=== PATIENT | female | born 1935 | race Caucasian/White ===

== ENCOUNTER 2018-08-07 12:06 | Emergency (ER) | payer MEDICARE ==
[2018-08-07] MEDS ORDERED: DIPH,PERTUS(ACELL)TETVAC-LF 0.5 ML VIAL IM ONE (12:30)
[2018-08-07] MEDS ORDERED: LIDOCAINE 1% INJ 10MG/ML (20 ML MDV) SQ ONE (12:30)
--- NOTE | 2018-08-07 13:25 | CT ---
EXAMINATION TYPE: CT facial bones wo con DATE OF EXAM: 08/07/2018 HISTORY: Fall, face forward onto cement with subsequent facial bone pain CT DLP: 198.2 mGycm. Automated Exposure Control for Dose Reduction was Utilized. TECHNIQUE: CT scan of the head is performed without contrast. COMPARISON: None. FINDINGS: There is a comminuted fracture of the nasal bones with inferior displacement of a small lef t nasal bone fragment 3 mm. There is bowing medially on the right nasal bone fracture without signifi cant displacement. There is bowing of the nasal septum leftward in its midportion. The anterior porti on of the nasal septum has a comminuted fracture on image 58 of axial series 205. The bony orbits appear intact. Scant mucosal thickening is seen in the left maxillary sinus and moder ate mucosal thickening in the anterior ethmoid sinuses with suspected hemorrhage in the left inferior nasal passageway extending into the posterior nasopharynx. The globes and extraocular muscles are sy mmetric. Mild soft tissue swelling is seen over the maxilla and nasal bridge. No additional facial shena ne fracture is seen. IMPRESSION: Comminuted nasal fracture of both the right and left nasal bone and anterior nasal septum with only m inimal displacement of the fracture fragments. Soft tissue swelling is seen over the nasal bridge and maxilla. No maxillary spine nor additional facial bone fracture is seen. Blood and/or secretions pro ducts appear within the left nasal passageway and posterior nasopharynx.
--- NOTE | 2018-08-07 13:27 | XR ---
EXAMINATION TYPE: XR wrist complete RT DATE OF EXAM: 08/07/2018 CLINICAL HISTORY: Left wrist pain after fall. TECHNIQUE: Frontal, lateral and oblique images of the left wrist are obtained. COMPARISON: None FINDINGS: There is a fracture of the distal radius that is intra-articular seen at the dorsal and uln ar aspect of the distal radius. This is superimposed on diffuse osseous demineralization. Faint calci fications are seen within the triangular fibrocartilage. Extensive degenerative change is present of the first carpometacarpal joint. IMPRESSION: There is a distal radial fracture of the dorsal and ulnar aspect with intra-articular ext ension and 3 mm proximal displacement of the most distal fracture fragment. Overlying soft tissue swe lling and diffuse osseous demineralization are seen.
--- NOTE | 2018-08-07 13:29 | CT ---
EXAMINATION TYPE: CT brain eldon foss con DATE OF EXAM: 08/07/2018 COMPARISON: None HISTORY: 83-year-old female with pain after Fall, face forward onto cement CT DLP: 749.4 mGycm Automated exposure control for dose reduction was used. Technique: Examination of the head was done in axial plane without intravenous contrast. Coronal and sagittal reconstructions performed. CT of the cervical spine was obtained in axial plane without intravenous injection of contrast mater ial. Coronal and sagittal reformatted images were obtained from the axial views for evaluation of f ractures, spinal alignment and canal. FINDINGS: Head: There is no evidence of acute intracranial hemorrhage, acute ischemic changes, mass, mass-effect, or extra-axial fluid collection. There is no effacement of cerebral sulci or basal subarachnoid cister ns. There is no hydrocephalus. There is no midline shift. Sommers-white matter distinction is preserv ed. Mild patchy white matter hypodensities both cerebral hemispheres is mild cerebral cortical volume los s. Old lacunar infarct left basal ganglia. Scattered calcifications in the carotid siphons. Mastoid air cells well pneumatized. No calvarial fracture. Facial bones reported separately. Cervical spine: No craniocervical junction anomaly, predental space widening, or prevertebral soft tissue swelling. Trace grade 1 retrolisthesis at C5-C6. Moderate distention plate degenerative change at C5-C6 with disc osteophyte complex mildly narrowing the spinal canal. Mild degenerative disc disease at additional levels. Uncovertebral joint arthropathy mid to lower cervical spine. No acute fracture. There is moderate to severe left foraminal stenosis at C5-C6 and mild at C6/C7. Sagittal and coronal reformatted images confirm above findings. COMBINED IMPRESSION: 1. No acute intracranial abnormality seen. Facial bones reported separately. 2. No acute fracture of the cervical spine. Moderate spondylotic change mid to lower cervical spine w ith degenerative grade 1 retrolisthesis at C5-C6.
--- NOTE | 2018-08-07 13:42 | XR ---
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 Tricompartmental degenerative spurring. Trace knee joint fluid. No sizable effusion. Mild anterior soft tissue swelling. Extensor mechanism is intact. No acut e fracture, subluxation, or dislocation is seen. IMPRESSION: Tricompartmental osteoarthrosis. There is only a trace knee joint effusion. Anterior soft tissue swel ling. No acute osseous abnormality seen.
--- NOTE | 2018-08-07 14:47 | ED ---
General Adult HPI - General Chief complaint: Fall Stated complaint: FALL Time Seen by Provider: 08/07/18 12:17 Source: patient, RN notes reviewed Mode of arrival: wheelchair Limitations: no limitations - History of Present Illness Initial comments: 83-year-old female with a past medical history of atrial flutter, CAD, diabetes, hyperlipidemia presents to emergency department for a chief complaint of fall. Patient states that she was walking on the sidewalk when she tripped and fell. States she hit her face against the sidewalk. States she also hit her hand on the sidewalk. Patient also landed on her right knee. States she is able to do it on the right knee but it is painful. Denies loss of consciousness. Denies blood thinners.Patient has no other complaints at this time including shortness of breath, chest pain, abdominal pain, nausea or vomiting, headache, or visual changes. - Related Data Home Medications Medication Instructions Recorded Confirmed Ascorbic Acid [Vitamin C] 1,000 mg PO BID 08/07/18 08/07/18 Aspirin 325 mg PO DAILY 08/07/18 08/07/18 Cholecalciferol [Vitamin D3] 1,000 unit PO DAILY 08/07/18 08/07/18 Cinnamon Bark [Cinnamon] 500 mg PO BID 08/07/18 08/07/18 Cranberry Fruit Extract [Cranberry] 500 mg PO DAILY 08/07/18 08/07/18 Digoxin [Lanoxin] 125 mcg PO DAILY 08/07/18 08/07/18 Evening [place] Oil 1300mg 1,300 mg PO DAILY 08/07/18 08/07/18 Glimepiride [Amaryl] 1 mg PO [id number] 08/07/18 08/07/18 Levothyroxine Sodium [Synthroid] 100 mcg PO DAILY 08/07/18 08/07/18 Magnesium Gluconate [Magonate] 500 mg PO BID 08/07/18 08/07/18 Metoprolol Tartrate [Lopressor] 50 mg PO BID 08/07/18 08/07/18 Milk Thistle 450 mg PO BID 08/07/18 08/07/18 [place]-3 Fatty Acids [[place]-3] 1,000 mg PO DAILY 08/07/18 08/07/18 Potassium 99 mg PO DAILY 08/07/18 08/07/18 Turmeric Root Extract [Turmeric] 500 mg PO BID 08/07/18 08/07/18 Ubidecarenone [Co Q-10] 200 mg PO DAILY 08/07/18 08/07/18 Vitamin B Complex 1 cap PO BID 08/07/18 08/07/18 Vitamin B-12/Folic Acid 1 tab SL DAILY 08/07/18 08/07/18 1000mcg/400mcg levOCARNitine [l-Carnitine] 500 mg PO BID 08/07/18 08/07/18 metFORMIN HCL [Glucophage] 1,000 mg PO BID 08/07/18 08/07/18 Previous Rx's Medication Instructions Recorded Azithromycin [Zithromax Z-pack] 250 mg PO DIRECTED #6 tab 08/07/18 Allergies Allergy/AdvReac Type Severity Reaction Status Date / Time Penicillins Allergy Unknown Verified 08/07/18 14:24 Detjnmh-Wuc-Env Reductase Allergy Unknown Verified 08/07/18 14:24 Inhibitor Sulfa (Sulfonamide Allergy Unknown Verified 08/07/18 14:24 Antibiotics) Review of Systems ROS Statement: Those systems with pertinent positive or pertinent negative responses have been documented in the HPI. ROS Other: All systems not noted in ROS Statement are negative. Past Medical History Past Medical History: Atrial Fibrillation, Coronary Artery Disease (CAD), Diabetes Mellitus, Hyperlipidemia, Thyroid Disorder History of Any Multi-Drug Resistant Organisms: None Reported Past Surgical History: Coronary Bypass/CABG Past Psychological History: No Psychological Hx Reported Smoking Status: Never smoker Past Alcohol Use History: None Reported Past Drug Use History: None Reported General Exam - General Exam Comments Initial Comments: Patient has edema noted to the right wrist with some limited range of motion however is able to both flex and extend. Radial pulse 2+. Capillary refill less than 2 seconds. Sensation intact. Patient does have some point tenderness noted of the radius Patient has some edema noted of the right knee without laceration or abrasion. Full range of motion of the right knee. Patient is ambulatory. DP pulse 2+ and capillary refill less than 2 seconds. Full range motion of the left upper and lower extremities with no evidence for trauma Limitations: no limitations General appearance: alert, in no apparent distress Head exam: Present: atraumatic, normocephalic, normal inspection Eye exam: Present: normal appearance, PERRL, EOMI. Absent: scleral icterus, conjunctival injection, periorbital swelling, other (Negative raccoon sign) ENT exam: Present: normal oropharynx, mucous membranes moist, TM's normal bilaterally, normal external ear exam (Negative Newberry sign), other (Patient is a 3 cm flap-like laceration over the nasal bridge with edema noted to the nose. No evidence for septal hematoma at this time. No ecchymosis of the nose or eyes. ) Neck exam: Present: normal inspection, full ROM. Absent: tenderness (No Tenderness noted of the cervical spine), meningismus, lymphadenopathy Respiratory exam: Present: normal lung sounds bilaterally. Absent: respiratory distress, wheezes, rales, rhonchi, stridor Cardiovascular Exam: Present: regular rate, normal rhythm, normal heart sounds. Absent: systolic murmur, diastolic murmur, rubs, gallop, clicks Back exam: Absent: vertebral tenderness (No thoracic or lumbar spine tenderness) Neurological exam: Present: alert, oriented X3, CN II-XII intact, other (GCS 15) Psychiatric exam: Present: normal affect, normal mood Course Vital Signs 08/07/18 12:08 Temperature 97.7 F Pulse Rate 80 Respiratory 18 Rate Blood Pressure 136/85 O2 Sat by Pulse 99 Oximetry Procedures - Laceration Laceration #1 Consent Obtained: verbal consent Indication: laceration Site: face Size (cm): 2 Description: flap Depth: simple, single layer Anesthetic Used: lidocaine 1% Anesthesia Technique: local infiltration Amount (mls): 2 Pre-repair: wound explored, irrigated extensively Type of Sutures: nylon Size of Sutures: 5-0 Number of Sutures: 3 Technique: simple, interrupted Patient Tolerated Procedure: well, no complications - Orthopedic Splinting/Casting Injury #1 Side: right Upper Extremity Injury Location: short arm Upper Extremity Immobilizer: volar splint Additional Comments: nv intact after splint applied Medical Decision Making - Medical Decision Making 83-year-old female presents after tripping fall today. No loss of consciousnes s. No blood thinners. No focal neuro deficits. CT brain shows no acute intracranial abnormality. CT C-spine shows no acute fracture. There are moderate spondylitic changes. A CT does show comminuted nasal fracture of both the right and left nasal bone and anterior nasal septum with only minimal displacement of fracture fragments. No additional facial bone fracture is seen. There is edema noted to the nose. No evidence for septal hematoma. She is unclear laceration over the bridge of the nose was sutured using 3 simple or procedures. Patient put on Augmentin. Patient also has distal radial fracture of the dorsal and ulnar aspect with intra-articular extension and 3 mm proximal displacement of the most distal fracture. This was immobilized with a volar wrist splint. X-ray of the right knee shows osteoarthritis with only trace knee joint effusion. Patient ambulatory. Will follow up with orthopedics for both knee pain and wrist pain. Patient's knee will not be immobilized as there is concern for increased risk of falls. Disposition Clinical Impression: Nasal bone fractures, Laceration, Wrist fracture, right Disposition: HOME SELF-CARE Condition: Good Instructions (If sedation given, give patient instructions): Nasal Fracture (ED), Wrist Fracture in Adults (ED) Additional Instructions: Please do not blow your nose. Take antibiotics as directed. Follow-up with primary care for nose fracture and laceration. Have sutures removed in 5 days either here or at primary care. Follow up with orthopedics for the wrist and knee injury. Keep splint in place. Do not get it wet. Return to the emergency department if you have any worsening symptoms. Prescriptions: Azithromycin [Zithromax Z-pack] 250 mg PO DIRECTED #6 tab Is patient prescribed a controlled substance at d/c from ED?: No Referrals: Naomi Westfall MD [Primary Care Provider] - 1-2 days Fermín Rojas DO [Doctor of Osteopathic Medicine] - 1-2 days Time of Disposition: 14:44
[2018-08-07 15:14] VITALS: BP 132/68; PULSE 88; RESP 16; TEMP 97.8
== END 2018-08-07 15:05 | disposition home or self-care (01) ==
LOC: EC 12:06
DX: S02.2XXA Fracture of nasal bones, initial encounter for closed fracture (principal); S52.571A Other intraarticular fracture of lower end of right radius, initial encounter for closed fracture; Z23 Encounter for immunization; M17.11 Unilateral primary osteoarthritis, right knee; S01.81XA Laceration without foreign body of other part of head, initial encounter; I48.91 Unspecified atrial fibrillation; I25.10 Atherosclerotic heart disease of native coronary artery without angina pectoris; E07.9 Disorder of thyroid, unspecified; E11.9 Type 2 diabetes mellitus without complications; Z79.84 Long term (current) use of oral hypoglycemic drugs; Z79.890 Hormone replacement therapy; Z79.899 Other long term (current) drug therapy; Z88.0 Allergy status to penicillin; Z88.2 Allergy status to sulfonamides; Z88.8 Allergy status to other drugs, medicaments and biological substances; Z95.1 Presence of aortocoronary bypass graft; W01.0XXA Fall on same level from slipping, tripping and stumbling without subsequent striking against object, initial encounter; Y93.01 Activity, walking, marching and hiking
CPT/HCPCS: 73110; 73562; 72125; 70486; 70450; 90715; 99284; 29125; 90471; J2001

== ENCOUNTER 2019-04-15 16:19 | Emergency (ER) | payer MEDICARE ==
[2019-04-15 16:24] VITALS: PULSE 85; RESP 18
[2019-04-15] MEDS ORDERED: SODIUM CHLORIDE 0.9% 1,000 ML IV ONE ×2 (16:52)
--- NOTE | 2019-04-15 17:01 | ED ---
Altered Mental Status HPI - General Chief Complaint: Altered Mental Status Stated Complaint: Afib, confused Time Seen by Provider: 04/15/19 16:34 Source: patient, family, RN notes reviewed Mode of arrival: wheelchair Limitations: altered mental status - History of Present Illness Initial Comments: This is a 83-year-old female with no prior history of stroke who presents with family today with complaints of confusion and altered mental status which either started last night or 90 before no prior history of strokes he has a history of bypass surgery. She has a history of left lower extremity blood vessel removal for the same. Decreased oral intake food intake for the last day or 2 no reported fevers chills nausea vomiting sweats. The patient is awake alert oriented 3 very sharp or per family members she today is confused does not know what they are one month or year it is. She was able ably per family no reported deficits to the extremities MD Complaint: altered mental status, confusion - Related Data Home Medications Medication Instructions Recorded Confirmed Ascorbic Acid [Vitamin C] 1,000 mg PO BID 08/07/18 08/07/18 Aspirin 325 mg PO DAILY 08/07/18 08/07/18 Cholecalciferol [Vitamin D3] 1,000 unit PO DAILY 08/07/18 08/07/18 Cinnamon Bark [Cinnamon] 500 mg PO BID 08/07/18 08/07/18 Cranberry Fruit Extract [Cranberry] 500 mg PO DAILY 08/07/18 08/07/18 Digoxin [Lanoxin] 125 mcg PO DAILY 08/07/18 08/07/18 Evening [place] Oil 1300mg 1,300 mg PO DAILY 08/07/18 08/07/18 Glimepiride [Amaryl] 1 mg PO [id number] 08/07/18 08/07/18 Levothyroxine Sodium [Synthroid] 100 mcg PO DAILY 08/07/18 08/07/18 Magnesium Gluconate [Magonate] 500 mg PO BID 08/07/18 08/07/18 Metoprolol Tartrate [Lopressor] 50 mg PO BID 08/07/18 08/07/18 Milk Thistle 450 mg PO BID 08/07/18 08/07/18 [place]-3 Fatty Acids [[place]-3] 1,000 mg PO DAILY 08/07/18 08/07/18 Potassium 99 mg PO DAILY 08/07/18 08/07/18 Turmeric Root Extract [Turmeric] 500 mg PO BID 08/07/18 08/07/18 Ubidecarenone [Co Q-10] 200 mg PO DAILY 08/07/18 08/07/18 Vitamin B Complex 1 cap PO BID 08/07/18 08/07/18 Vitamin B-12/Folic Acid 1 tab SL DAILY 08/07/18 08/07/18 1000mcg/400mcg levOCARNitine [l-Carnitine] 500 mg PO BID 08/07/18 08/07/18 metFORMIN HCL [Glucophage] 1,000 mg PO BID 08/07/18 08/07/18 Previous Rx's Medication Instructions Recorded Azithromycin [Zithromax Z-pack] 250 mg PO DIRECTED #6 tab 08/07/18 Allergies Allergy/AdvReac Type Severity Reaction Status Date / Time Penicillins Allergy Unknown Verified 04/15/19 16:24 Jhhjfuw-Eso-Afr Reductase Allergy Unknown Verified 04/15/19 16:24 Inhibitor Sulfa (Sulfonamide Allergy Unknown Verified 04/15/19 16:24 Antibiotics) Review of Systems ROS Statement: Those systems with pertinent positive or pertinent negative responses have been documented in the HPI. ROS Other: All systems not noted in ROS Statement are negative. Past Medical History Past Medical History: Atrial Fibrillation, Coronary Artery Disease (CAD), Diabetes Mellitus, Hyperlipidemia, Thyroid Disorder History of Any Multi-Drug Resistant Organisms: None Reported Past Surgical History: Coronary Bypass/CABG Past Psychological History: No Psychological Hx Reported Smoking Status: Never smoker Past Alcohol Use History: None Reported Past Drug Use History: None Reported General Exam - General Exam Comments Initial Comments: This is a well-developed well-nourished awake alert but confused female Limitations: altered mental status General appearance: alert, in no apparent distress Head exam: Present: atraumatic, normocephalic, normal inspection Eye exam: Present: normal appearance, PERRL, EOMI. Absent: scleral icterus, conjunctival injection, periorbital swelling ENT exam: Present: normal exam, mucous membranes moist Neck exam: Present: normal inspection, full ROM, other (No stridor JVD or bruits). Absent: tenderness, meningismus, lymphadenopathy Respiratory exam: Present: normal lung sounds bilaterally. Absent: respiratory distress, wheezes, rales, rhonchi, stridor Cardiovascular Exam: Present: irregular rhythm. Absent: systolic murmur, diastolic murmur, rubs, gallop, clicks GI/Abdominal exam: Present: soft, normal bowel sounds. Absent: distended, tenderness, guarding, rebound, rigid Extremities exam: Present: normal inspection, full ROM, normal capillary refill. Absent: tenderness, pedal edema, joint swelling, calf tenderness Back exam: Present: normal inspection Neurological exam: Present: alert, altered, CN II-XII intact. Absent: motor sensory deficit Psychiatric exam: Present: normal affect, normal mood Skin exam: Present: warm, dry, intact, normal color. Absent: rash Course Vital Signs 04/15/19 16:20 Temperature 98.7 F Pulse Rate 85 Respiratory 18 Rate Blood Pressure 91/57 O2 Sat by Pulse 97 Oximetry - Reevaluation(s) Reevaluation #1: 04/15/19 18:50 Evaluation patient reveals no change in her status. I did discuss the initial findings with family members patient has not had any change she is not any blood thinners at this time she has chronic atrial fibrillation. Medical Decision Making - Medical Decision Making Patient remains unchanged in her status. I did discuss the findings with the patient and her family. I did discuss the case with Dr. Zuñiga from interventional neurology did request the patient be transferred to [facility]. I did later then discussed the case with Dr. Bose who is agreed to set the patient is a year to ER transfer. - Lab Data Result diagrams: 04/15/19 16:55 04/15/19 16:55 Lab Results 04/15/19 04/15/19 04/15/19 Range/Units 16:55 16:55 16:55 WBC 9.8 (3.8-10.6) k/uL RBC 4.64 (3.80-5.40) m/uL Hgb 14.0 (11.4-16.0) gm/dL Hct 42.5 (34.0-46.0) % MCV 91.6 (80.0-100.0) fL MCH 30.2 (25.0-35.0) pg MCHC 33.0 (31.0-37.0) g/dL RDW 12.9 (11.5-15.5) % Plt Count 251 (150-450) k/uL Neutrophils % 60 % Lymphocytes % 29 % Monocytes % 7 % Eosinophils % 2 % Basophils % 1 % Neutrophils # 5.9 (1.3-7.7) k/uL Lymphocytes # 2.8 (1.0-4.8) k/uL Monocytes # 0.7 (0-1.0) k/uL Eosinophils # 0.2 (0-0.7) k/uL Basophils # 0.1 (0-0.2) k/uL PT (9.0-12.0) sec INR (<1.2) APTT (22.0-30.0) sec Sodium 135 L (137-145) mmol/L Potassium 4.3 (3.5-5.1) mmol/L Chloride 100 (98-107) mmol/L Carbon Dioxide 24 (22-30) mmol/L Anion Gap 11 mmol/L BUN 16 (7-17) mg/dL Creatinine 0.67 (0.52-1.04) mg/dL Est GFR (CKD-EPI)AfAm >90 (>60 ml/min/1.73 sqM) Est GFR (CKD-EPI)NonAf 83 (>60 ml/min/1.73 sqM) Glucose 147 H (74-99) mg/dL POC Glucose (mg/dL) (75-99) mg/dL POC Glu Can Filling And Closing Machine Tender ID Calcium 9.7 (8.4-10.2) mg/dL Magnesium 1.8 (1.6-2.3) mg/dL Total Bilirubin 0.7 (0.2-1.3) mg/dL AST 29 (14-36) U/L ALT 17 (4-34) U/L Alkaline Phosphatase 40 (38-126) U/L Ammonia (<30) umol/L Creatine Kinase 124 (30-135) U/L Troponin I (0.000-0.034) ng/mL Total Protein 6.9 (6.3-8.2) g/dL Albumin 4.3 (3.5-5.0) g/dL Urine Color Yellow Urine Appearance Clear (Clear) Urine pH 5.0 (5.0-8.0) Ur Specific [place] 1.020 (1.001-1.035) Urine Protein Negative (Negative) Urine Glucose (UA) Negative (Negative) Urine Ketones Trace H (Negative) Urine Blood Negative (Negative) Urine Nitrite Negative (Negative) Urine Bilirubin Negative (Negative) Urine Urobilinogen <2.0 (<2.0) mg/dL Ur Leukocyte Esterase Moderate H (Negative) Urine RBC 1 (0-5) /hpf Urine WBC 28 H (0-5) /hpf Ur Squamous Epith Cells 1 (0-4) /hpf Urine Mucus Occasional H (None) /hpf Urine Opiates Screen Not Detected (NotDetected) Ur Oxycodone Screen Not Detected (NotDetected) Urine Methadone Screen Not Detected (NotDetected) Ur Propoxyphene Screen Not Detected (NotDetected) Ur Barbiturates Screen Not Detected (NotDetected) U Tricyclic Antidepress Not Detected (NotDetected) Ur Phencyclidine Scrn Not Detected (NotDetected) Ur Amphetamines Screen Not Detected (NotDetected) U Methamphetamines Scrn Not Detected (NotDetected) U Benzodiazepines Scrn Not Detected (NotDetected) Urine Cocaine Screen Not Detected (NotDetected) U Marijuana (THC) Screen Not Detected (NotDetected) 04/15/19 04/15/19 04/15/19 Range/Units 16:55 16:55 16:55 WBC (3.8-10.6) k/uL RBC (3.80-5.40) m/uL Hgb (11.4-16.0) gm/dL Hct (34.0-46.0) % MCV (80.0-100.0) fL MCH (25.0-35.0) pg MCHC (31.0-37.0) g/dL RDW (11.5-15.5) % Plt Count (150-450) k/uL Neutrophils % % Lymphocytes % % Monocytes % % Eosinophils % % Basophils % % Neutrophils # (1.3-7.7) k/uL Lymphocytes # (1.0-4.8) k/uL Monocytes # (0-1.0) k/uL Eosinophils # (0-0.7) k/uL Basophils # (0-0.2) k/uL PT 10.8 (9.0-12.0) sec INR 1.0 (<1.2) APTT 24.4 (22.0-30.0) sec Sodium (137-145) mmol/L Potassium (3.5-5.1) mmol/L Chloride (98-107) mmol/L Carbon Dioxide (22-30) mmol/L Anion Gap mmol/L BUN (7-17) mg/dL Creatinine (0.52-1.04) mg/dL Est GFR (CKD-EPI)AfAm (>60 ml/min/1.73 sqM) Est GFR (CKD-EPI)NonAf (>60 ml/min/1.73 sqM) Glucose (74-99) mg/dL POC Glucose (mg/dL) (75-99) mg/dL POC Glu Can Filling And Closing Machine Tender ID Calcium (8.4-10.2) mg/dL Magnesium (1.6-2.3) mg/dL Total Bilirubin (0.2-1.3) mg/dL AST (14-36) U/L ALT (4-34) U/L Alkaline Phosphatase (38-126) U/L Ammonia <9 (<30) umol/L Creatine Kinase (30-135) U/L Troponin I <0.012 (0.000-0.034) ng/mL Total Protein (6.3-8.2) g/dL Albumin (3.5-5.0) g/dL Urine Color Urine Appearance (Clear) Urine pH (5.0-8.0) Ur Specific [place] (1.001-1.035) Urine Protein (Negative) Urine Glucose (UA) (Negative) Urine Ketones (Negative) Urine Blood (Negative) Urine Nitrite (Negative) Urine Bilirubin (Negative) Urine Urobilinogen (<2.0) mg/dL Ur Leukocyte Esterase (Negative) Urine RBC (0-5) /hpf Urine WBC (0-5) /hpf Ur Squamous Epith Cells (0-4) /hpf Urine Mucus (None) /hpf Urine Opiates Screen (NotDetected) Ur Oxycodone Screen (NotDetected) Urine Methadone Screen (NotDetected) Ur Propoxyphene Screen (NotDetected) Ur Barbiturates Screen (NotDetected) U Tricyclic Antidepress (NotDetected) Ur Phencyclidine Scrn (NotDetected) Ur Amphetamines Screen (NotDetected) U Methamphetamines Scrn (NotDetected) U Benzodiazepines Scrn (NotDetected) Urine Cocaine Screen (NotDetected) U Marijuana (THC) Screen (NotDetected) 04/15/19 Range/Units 17:26 WBC (3.8-10.6) k/uL RBC (3.80-5.40) m/uL Hgb (11.4-16.0) gm/dL Hct (34.0-46.0) % MCV (80.0-100.0) fL MCH (25.0-35.0) pg MCHC (31.0-37.0) g/dL RDW (11.5-15.5) % Plt Count (150-450) k/uL Neutrophils % % Lymphocytes % % Monocytes % % Eosinophils % % Basophils % % Neutrophils # (1.3-7.7) k/uL Lymphocytes # (1.0-4.8) k/uL Monocytes # (0-1.0) k/uL Eosinophils # (0-0.7) k/uL Basophils # (0-0.2) k/uL PT (9.0-12.0) sec INR (<1.2) APTT (22.0-30.0) sec Sodium (137-145) mmol/L Potassium (3.5-5.1) mmol/L Chloride (98-107) mmol/L Carbon Dioxide (22-30) mmol/L Anion Gap mmol/L BUN (7-17) mg/dL Creatinine (0.52-1.04) mg/dL Est GFR (CKD-EPI)AfAm (>60 ml/min/1.73 sqM) Est GFR (CKD-EPI)NonAf (>60 ml/min/1.73 sqM) Glucose (74-99) mg/dL POC Glucose (mg/dL) 129 H (75-99) mg/dL POC Glu Can Filling And Closing Machine Tender ID Zahira Lora Calcium (8.4-10.2) mg/dL Magnesium (1.6-2.3) mg/dL Total Bilirubin (0.2-1.3) mg/dL AST (14-36) U/L ALT (4-34) U/L Alkaline Phosphatase (38-126) U/L Ammonia (<30) umol/L Creatine Kinase (30-135) U/L Troponin I (0.000-0.034) ng/mL Total Protein (6.3-8.2) g/dL Albumin (3.5-5.0) g/dL Urine Color Urine Appearance (Clear) Urine pH (5.0-8.0) Ur Specific [place] (1.001-1.035) Urine Protein (Negative) Urine Glucose (UA) (Negative) Urine Ketones (Negative) Urine Blood (Negative) Urine Nitrite (Negative) Urine Bilirubin (Negative) Urine Urobilinogen (<2.0) mg/dL Ur Leukocyte Esterase (Negative) Urine RBC (0-5) /hpf Urine WBC (0-5) /hpf Ur Squamous Epith Cells (0-4) /hpf Urine Mucus (None) /hpf Urine Opiates Screen (NotDetected) Ur Oxycodone Screen (NotDetected) Urine Methadone Screen (NotDetected) Ur Propoxyphene Screen (NotDetected) Ur Barbiturates Screen (NotDetected) U Tricyclic Antidepress (NotDetected) Ur Phencyclidine Scrn (NotDetected) Ur Amphetamines Screen (NotDetected) U Methamphetamines Scrn (NotDetected) U Benzodiazepines Scrn (NotDetected) Urine Cocaine Screen (NotDetected) U Marijuana (THC) Screen (NotDetected) - EKG Data -: EKG Interpreted by Me (Atrial fibrillation rate of 93 QRS duration 86 daily since QTC 350/435 nons) EKG Comments: Atrial fibrillation rate of 93 QRS 86 QT since QTC 350/[address]-T wave configuration - Radiology Data Radiology results: report reviewed (I did review the imaging and report evidence of a hemorrhagic ischemic infarct on the left temporal lobe I did discuss this with Dr. Billy.), image reviewed Critical Care Time Critical Care Time: Yes Critical Care Time: 35 minutes of critical care time which includes initial presentation with history physical labs x-rays multiple reevaluation the patient discussed with patient family regarding the findings discussion with the interventional neurologist as well as with the receiving facility also discussion with the paramedics transferring the patient. This also did include re-reviewing old charting that was available. This also included reviewing the patient's medications were present in by family. This also included documentation of the above Disposition Clinical Impression: Intracranial hemorrhage, CVA (cerebral vascular accident), Altered mental status, Chronic atrial fibrillation Disposition: OTHER INSTITUTION NOT DEFINED Condition: Serious Referrals: Naomi Westfall MD [Primary Care Provider] - 1-2 days - Out of Hospital Transfer - Req. Specs Out of Hospital Transfer - Requested Specifics: Other Emergency Center
[2019-04-15 17:24] LABS: Basophils # (A) 0.1 k/uL (0-0.2); Basophils % (A) 1 %; Eosinophils # (A) 0.2 k/uL (0-0.7); Eosinophils % (A) 2 %; HCT 42.5 % (34.0-46.0); Lymphocytes # (A) 2.8 k/uL (1.0-4.8); Lymphocytes % (A) 29 %; MCH 30.2 pg (25.0-35.0); MCV 91.6 fL (80.0-100.0); Mean Platelet Volume 7.6; Monocytes # (A) 0.7 k/uL (0-1.0); Monocytes % (A) 7 %; Neutrophils # (A) 5.9 k/uL (1.3-7.7); Neutrophils % (A) 60 %; Platelet Count 251 k/uL (150-450); RBC 4.64 m/uL (3.80-5.40); RDW 12.9 % (11.5-15.5); WBC 9.8 k/uL (3.8-10.6)
[2019-04-15 17:27] LABS: Appearance,Urine Clear (Clear); Bilirubin,Urine Negative (Negative); Blood,Urine Negative (Negative); Color,Urine Yellow; Glucose,Urine (UA) Negative (Negative); Ketones,Urine Trace (Negative); Leukocyte Esterase,Urine Moderate (Negative); Mucus,Urine Occasional /hpf; Nitrite,Urine Negative (Negative); Protein,Urine Negative (Negative); RBC,Urine 1 /hpf (0-5); Squamous Epithelial Cell,Urine 1 /hpf (0-4); Urobilinogen,Urine <2.0 mg/dL (<2.0); WBC,Urine 28 /hpf (0-5)
[2019-04-15 17:27] LABS: Glucose,Whole Blood 129 mg/dL (75-99)
[2019-04-15 17:33] LABS: ALT 17 U/L (4-34); AST 29 U/L (14-36); African American GFR (CKD) >90 (>60 ml/min/1.73 sqM); Albumin 4.3 g/dL (3.5-5.0); Alkaline Phosphatase 40 U/L (38-126); Amphetamine Screen,Urine Not Detected (NotDetected); Anion Gap 11 mmol/L; Barbiturate Screen,Urine Not Detected (NotDetected); Benzodiazepines Screen,Urine Not Detected (NotDetected); Blood Urea Nitrogen 16 mg/dL (7-17); Calcium 9.7 mg/dL (8.4-10.2); Carbon Dioxide 24 mmol/L (22-30); Chloride 100 mmol/L (98-107); Cocaine Screen,Urine Not Detected (NotDetected); Creatine Kinase 124 U/L (30-135); Glucose 147 mg/dL (74-99); Magnesium 1.8 mg/dL (1.6-2.3); Methadone Screen, Urine Not Detected (NotDetected); Non-African American GFR(CKD) 83 (>60 ml/min/1.73 sqM); Opiate Screen,Urine Not Detected (NotDetected); Oxycodone Screen, Urine Not Detected (NotDetected); Partial Thromboplastin Time 24.4 sec (22.0-30.0); Phencyclidine Screen,Urine Not Detected (NotDetected); Potassium 4.3 mmol/L (3.5-5.1); Prothrombin Time 10.8 sec (9.0-12.0); Sodium 135 mmol/L (137-145); Total Bilirubin 0.7 mg/dL (0.2-1.3); Total Protein 6.9 g/dL (6.3-8.2); Tricyclic Antidepressant,Urine Not Detected (NotDetected); Urn Cannabinoid Scrn Not Detected (NotDetected)
--- NOTE | 2019-04-15 18:20 | CT ---
EXAMINATION TYPE: CT brain wo con DATE OF EXAM: 04/15/2019 COMPARISON: 08/07/2018 HISTORY: Confusion CT DLP: 1094.4 mGycm Automated exposure control for dose reduction was used. Multiple axial sections were obtained of the brain without contrast. There is a 3.5 cm area of high attenuation in the left posterior temporal lobe with some mild surroun ding edema. This is consistent with an acute hemorrhage in the brain parenchyma. There is no signific ant mass effect. There is no midline shift. Calvarium is intact. Area of edema around the hemorrhage measures 6 x 4.5 cm. There is mild cerebral cortical atrophy. IMPRESSION: Acute hemorrhage left temporal lobe consistent with acute hemorrhagic infarct. This exam was discusse d with Dr. Saenz at 6:30 PM.
--- NOTE | 2019-04-15 18:27 | XR ---
EXAMINATION TYPE: XR chest 2V DATE OF EXAM: 04/15/2019 COMPARISON: NONE HISTORY: Altered mental status TECHNIQUE: 2 views FINDINGS: There is no heart failure nor confluent pneumonic infiltrate. There are sternal wires. Cost ophrenic angles are clear. Bony thorax is intact. There are chest leads. IMPRESSION: No active cardiopulmonary disease.
[2019-04-15 19:17] VITALS: BP 114/68
[2019-04-15 19:25] VITALS: TEMP 97.9
== END 2019-04-15 19:21 | disposition other institution (70) ==
LOC: EC 16:19
DX: I62.9 Nontraumatic intracranial hemorrhage, unspecified (principal); I48.20 Chronic atrial fibrillation, unspecified; I63.9 Cerebral infarction, unspecified; I25.10 Atherosclerotic heart disease of native coronary artery without angina pectoris; E11.9 Type 2 diabetes mellitus without complications; E07.9 Disorder of thyroid, unspecified; Z79.890 Hormone replacement therapy; Z79.82 Long term (current) use of aspirin; Z79.899 Other long term (current) drug therapy; Z79.84 Long term (current) use of oral hypoglycemic drugs; Z88.0 Allergy status to penicillin; Z88.2 Allergy status to sulfonamides; Z88.8 Allergy status to other drugs, medicaments and biological substances; Z95.1 Presence of aortocoronary bypass graft
CPT/HCPCS: 36415; 70450; 71046; 80053; 80306; 81001; 82140; 82550; 83735; 84484; 85025; 85610; 85730; 87077; 87086; 87186; 93005; 96360; 96361; 99291

== ENCOUNTER → 2020-07-21 | Outpatient (CLI) | payer MEDICARE ==
[2020-07-21 22:09] LABS: African American GFR (CKD) 79.6 (60.0-200.0); Albumin 4.6 g/dL (3.80-4.90); Albumin/Globulin Ratio 2.09 (1.60-3.17); Anion Gap 8.8 mmol/L (4.00-12.00); BUN/Creat Ratio 21.25 Ratio (12.00-20.00); Calcium 9.7 mg/dL (8.7-10.3); Carbon Dioxide 27.2 mmol/L (21.6-31.8); Globulin 2.2 g/dL (1.6-3.3); Non-African American GFR(CKD) 68.7 (60.0-200.0); Potassium 4.4 mmol/L (3.5-5.5); Total Bilirubin 0.4 mg/dL (0.3-1.2); Total Protein 6.8 g/dL (6.2-8.2)
[2020-07-22 06:25] LABS: Urine Creatinine 122.5 mg/dL
== END | disposition home or self-care (01) ==
LOC: LABWHC1 13:18
PROVIDERS: ATTEND Internal Medicine Endocrinology, Diabetes & Metabolism
DX: E11.65 Type 2 diabetes mellitus with hyperglycemia (principal)
CPT/HCPCS: 36415; 80053; 82043; 82570; 83036; 84443

== ENCOUNTER → 2021-03-27 | Outpatient (CLI) | payer MEDICARE ==
[2021-03-28 06:15] LABS: ALT 21 U/L (8-44); AST 28 U/L (13-35); Albumin 4.5 g/dL (3.8-4.9); Albumin/Globulin Ratio 1.88 (1.60-3.17); Alkaline Phosphatase 36 U/L (41-126); BUN/Creat Ratio 23.63 Ratio (12.00-20.00); Blood Urea Nitrogen 18.9 mg/dL (9.0-27.0); Calcium 9.7 mg/dL (8.7-10.3); Carbon Dioxide 20.1 mmol/L (20.0-27.5); Chloride 102 mmol/L (96-109); Chol/HDL Ratio 6.82 Ratio; Globulin 2.4 g/dL (1.6-3.3); Glucose 127 mg/dL (70-110); LDL Cholesterol,Calculated 117.2 mg/dL (0.0-131.0); Non-African American GFR(CKD) 68.2 (60.0-200.0); Potassium 4.5 mmol/L (3.5-5.5); Sodium 143 mmol/L (135-145); Total Protein 6.9 g/dL (6.2-8.2)
== END | disposition home or self-care (01) ==
LOC: LABWHC1 11:16
PROVIDERS: ATTEND Internal Medicine Endocrinology, Diabetes & Metabolism
DX: E11.65 Type 2 diabetes mellitus with hyperglycemia (principal)
CPT/HCPCS: 36415; 80053; 80061; 82043; 82570; 83036; 84443

== ENCOUNTER → 2022-03-06 | Outpatient (CLI) | payer MEDICARE ==
[2022-03-06 14:59] LABS: African American GFR (CKD) 90.3 (60.0-200.0); Albumin 4.5 g/dL (3.8-4.9); BUN/Creat Ratio 21.21 Ratio (12.00-20.00); Blood Urea Nitrogen 15.1 mg/dL (9.0-27.0); Calcium 9.6 mg/dL (8.7-10.3); Carbon Dioxide 28.7 mmol/L (20.0-27.5); Globulin 2.3 g/dL (1.6-3.3); HDL Cholesterol 36.7 mg/dL (40.00-60.00); Non-African American GFR(CKD) 77.9 (60.0-200.0); Potassium 4.8 mmol/L (3.5-5.5); Total Bilirubin 0.4 mg/dL (0.30-1.20); Total Protein 6.8 g/dL (6.2-8.2)
[2022-03-06 15:26] LABS: Chol/HDL Ratio 7.6 Ratio; LDL Cholesterol,Direct Reflex 96.3 mg/dL (0.00-129.00)
== END | disposition home or self-care (01) ==
LOC: LABWHC1 09:34
PROVIDERS: ATTEND Internal Medicine Endocrinology, Diabetes & Metabolism
DX: E11.65 Type 2 diabetes mellitus with hyperglycemia (principal)
CPT/HCPCS: 36415; 80053; 80061; 82043; 82570; 83036; 83721; 84443

== ENCOUNTER → 2022-09-04 | Outpatient (CLI) | payer MEDICARE ==
[2022-09-04 15:35] LABS: ALT 12 U/L (8-44); AST 16 U/L (13-35); African American GFR (CKD) 93.5 (60.0-200.0); Albumin 4.3 g/dL (3.8-4.9); Albumin/Globulin Ratio 1.93 (1.60-3.17); Alkaline Phosphatase 42 U/L (41-126); BUN/Creat Ratio 19.18 Ratio (12.00-20.00); Blood Urea Nitrogen 12.6 mg/dL (9.0-27.0); Calcium 9.7 mg/dL (8.7-10.3); Carbon Dioxide 27.8 mmol/L (20.0-27.5); Chloride 100 mmol/L (96-109); Chol/HDL Ratio 6.36 Ratio; Globulin 2.2 g/dL (1.6-3.3); Glucose 138 mg/dL (70-110); LDL Cholesterol,Calculated 102.4 mg/dL (0.0-131.0); Non-African American GFR(CKD) 80.7 (60.0-200.0); Potassium 4.6 mmol/L (3.5-5.5); Sodium 140 mmol/L (135-145); Total Protein 6.5 g/dL (6.2-8.2)
[2022-09-04 20:16] LABS: Microalbumin Creatinine Ratio <30 mg/g Creat (0-30); Urine Creatinine 85.3 mg/dL (28.0-217.0)
== END | disposition home or self-care (01) ==
LOC: LABWHC1 10:41
PROVIDERS: ATTEND Internal Medicine Endocrinology, Diabetes & Metabolism
DX: E11.65 Type 2 diabetes mellitus with hyperglycemia (principal)
CPT/HCPCS: 36415; 80053; 80061; 82043; 82570; 83036; 84443

== ENCOUNTER → 2023-03-09 | Outpatient (CLI) | payer MEDICARE ==
[2023-03-09 23:23] LABS: BUN/Creat Ratio 26.83 Ratio (12.00-20.00); Blood Urea Nitrogen 16.1 mg/dL (9.0-27.0); Chloride 101 mmol/L (96-109); Chol/HDL Ratio 6.64 Ratio; Glucose 137 mg/dL (70-110); LDL Cholesterol,Calculated 119.4 mg/dL (0.0-131.0); Potassium 4.4 mmol/L (3.5-5.5); Sodium 139 mmol/L (135-145)
[2023-03-09 23:24] LABS: ALT 10 U/L (8-44); AST 12 U/L (13-35); Albumin 4.3 g/dL (3.8-4.9); Albumin/Globulin Ratio 2.05 Ratio (1.60-3.17); Alkaline Phosphatase 44 U/L (41-126); Calcium 9.4 mg/dL (8.7-10.3); Globulin 2.1 g/dL (1.6-3.3); Total Bilirubin 0.3 mg/dL (0.3-1.2); Total Protein 6.4 g/dL (6.2-8.2)
[2023-03-09 23:42] LABS: Microalbumin Creatinine Ratio <9 mg/g Cr (0-30)
== END | disposition home or self-care (01) ==
LOC: LABWHC1 10:22
PROVIDERS: ATTEND Internal Medicine Endocrinology, Diabetes & Metabolism
DX: E11.65 Type 2 diabetes mellitus with hyperglycemia (principal)
CPT/HCPCS: 36415; 80053; 80061; 82043; 82570; 83036; 84443

== ENCOUNTER 2023-06-13 21:22 | Inpatient (IN) | payer MEDICARE ==
--- NOTE | 2023-06-13 21:37 | ED ---
General Adult HPI - General Stated complaint: fever Time Seen by Provider: 06/13/23 21:23 - History of Present Illness Initial comments: Dictation was produced using [employer] dictation software. please excuse any grammatical, word or spelling errors. Chief Complaint: 87-year-old female presents to the emergency department for shaking chills and tremors History of Present Illness: Patient is 87-year-old female she presents emergency department via EMS. Patient has been experiencing acute onset shaking chills tremors. Family notices symptoms. They were going to bring patient to the emergency department however she became so weak and was too weak to get into the car. She slumped down and it was difficult for family to bring the patient here EMS was called EMS states that patient was febrile with a temperature of 101. She had a borderline low oxygenation on room air. 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 Patient denies any complaints. According to EMS who received report from family there was no concern about her mentation Unable to obtain ROS secondary to mental status - Related Data Home Medications Medication Instructions Recorded Confirmed Ascorbic Acid [Vitamin C] 1,000 mg PO BID 08/07/18 08/07/18 Aspirin 325 mg PO DAILY 08/07/18 08/07/18 Cholecalciferol [Vitamin D3] 1,000 unit PO DAILY 08/07/18 08/07/18 Cinnamon Bark [Cinnamon] 500 mg PO BID 08/07/18 08/07/18 Cranberry Fruit Extract [Cranberry] 500 mg PO DAILY 08/07/18 08/07/18 Digoxin [Lanoxin] 125 mcg PO DAILY 08/07/18 08/07/18 Evening [place] Oil 1300mg 1,300 mg PO DAILY 08/07/18 08/07/18 Glimepiride [Amaryl] 1 mg PO AC-BRKFST 08/07/18 08/07/18 Levothyroxine Sodium [Synthroid] 100 mcg PO DAILY 08/07/18 08/07/18 Magnesium Gluconate [Magonate] 500 mg PO BID 08/07/18 08/07/18 Metoprolol Tartrate [Lopressor] 50 mg PO BID 08/07/18 08/07/18 Milk Thistle 450 mg PO BID 08/07/18 08/07/18 [place]-3 Fatty Acids [[place]-3] 1,000 mg PO DAILY 08/07/18 08/07/18 Potassium 99 mg PO DAILY 08/07/18 08/07/18 Turmeric Root Extract [Turmeric] 500 mg PO BID 08/07/18 08/07/18 Ubidecarenone [Co Q-10] 200 mg PO DAILY 08/07/18 08/07/18 Vitamin B Complex 1 cap PO BID 08/07/18 08/07/18 Vitamin B-12/Folic Acid 1 tab SL DAILY 08/07/18 08/07/18 1000mcg/400mcg levOCARNitine [l-Carnitine] 500 mg PO BID 08/07/18 08/07/18 metFORMIN HCL [Glucophage] 1,000 mg PO BID 08/07/18 08/07/18 Previous Rx's Medication Instructions Recorded Azithromycin [Zithromax Z-pack (6 250 mg PO DIRECTED #6 tab 08/07/18 tabs)] Allergies Allergy/AdvReac Type Severity Reaction Status Date / Time Penicillins Allergy Unknown Verified 04/15/19 16:24 Dusisod-PZK-JlY Reductase Allergy Unknown Verified 04/15/19 16:24 Inhibitor [Rzeypcv-Gsz-Tff Reductase Inhibitor] Sulfa (Sulfonamide Allergy Unknown Verified 04/15/19 16:24 Antibiotics) Review of Systems ROS Statement: Those systems with pertinent positive or pertinent negative responses have been documented in the HPI. ROS Other: All systems not noted in ROS Statement are negative. Past Medical History Past Medical History: Atrial Fibrillation, Coronary Artery Disease (CAD), Diabetes Mellitus, Hyperlipidemia, Thyroid Disorder History of Any Multi-Drug Resistant Organisms: None Reported Past Surgical History: Coronary Bypass/CABG Past Psychological History: No Psychological Hx Reported Past Alcohol Use History: None Reported Past Drug Use History: None Reported General Exam - General Exam Comments Initial Comments: PHYSICAL EXAM: General Impression: Alert and oriented x2/4, not in acute distress HEENT: Normocephalic atraumatic, extra-ocular movements intact, pupils equal and reactive to light bilaterally, mucous membranes moist. Cardiovascular: Heart regular rate and rhythm Chest: Able to complete full sentences, no retractions, no tachypnea Abdomen: abdomen soft, diffuse palpatory tenderness to the abdomen, non- distended, no organomegaly Musculoskeletal: Pulses present and equal in all extremities, no peripheral edema Motor: no focal deficits noted Neurological: CN II-XII grossly intact, no focal motor or sensory deficits noted Skin: Intact with no visualized rashes Psych: Normal affect and mood Course Vital Signs 06/13/23 06/13/23 06/14/23 21:42 23:13 01:09 Temperature 101.2 F H 100.6 F H Pulse Rate 77 80 80 Respiratory 22 20 16 Rate Blood Pressure 110/71 121/72 124/55 O2 Sat by Pulse 91 L 92 L 92 L Oximetry 06/14/23 06/14/23 06/14/23 01:57 02:00 03:36 Temperature 100.7 F H Pulse Rate 79 78 74 Respiratory 18 20 15 Rate Blood Pressure 117/48 117/48 129/50 O2 Sat by Pulse 92 L 92 L 94 L Oximetry EKG Findings - EKG Comments: EKG Findings:: My EKG interpretation: Ventricular rate 80, sinus rhythm, TN interval 203, cures 122, QTc 411. No TN prolongation, no QTC prolongation, no ST or T-wave changes noted. EKG compared to April 15, 2019 showing no changes. Overall, this EKG is unremarkable Medical Decision Making - Medical Decision Making Was pt. sent in by a medical professional or institution (, PA, [employer], urgent care, hospital, or [facility]...) When possible be specific @ -No Did you speak to anyone other than the patient for history (EMS, parent, family, police, friend...)? What history was obtained from this source @ -Some history obtained from family number at the bedside states that patient was very shaky today Did you review nursing and triage notes (agree or disagree)? Why? @ -I reviewed and agree with nursing and triage notes Were old charts reviewed (outside hosp., previous admission, EMS record, old EKG, old radiological studies, urgent care reports/EKG's, [facility] records)? Report findings @ -No old charts were reviewed Differential Diagnosis (chest pain, altered mental status, abdominal pain women, abdominal pain men, vaginal bleeding, musculoskeletal, weakness, fever, dyspnea, syncope, headache, dizziness, GI bleed, back pain, seizure, CVA, palpatations, mental health)? @ -Differential Weakness: Hypoglycemia, shock, sepsis, hyponatremia, anemia, infection, [place], ETOH, adverse medicine reaction, overdose, stroke, this is not meant to be an all-inclusive list. EKG interpreted by me (3pts min.). @ -See above X-rays interpreted by me (1pt min.). @ -Chest x-ray is nonacute CT interpreted by me (1pt min.). @ -CT of the abdomen pelvis shows no acute processes U/S interpreted by me (1pt. min.). @ -None done What testing was considered but not performed or refused? (CT, X-rays, U/S, labs)? Why? @ -None What meds were considered but not given or refused? Why? @ -None Did you discuss the management of the patient with other professionals (professionals i.e. , PA, [employer], lab, RT, psych nurse, child welfare social worker, orthoptist, teacher, hospital admissions officer, shelter case manager)? Give summary @ -Case discussed with hospitalist for admission Was smoking cessation discussed for >3mins.? @ -No Was critical care preformed (if so, how long)? @ -No Were there social determinants of health that impacted care today? How? (Homeles sness, low income, unemployed, alcoholism, drug addiction, transportation, low edu. Level, literacy, decrease access to med. care, detention, rehab)? @ -No Was there de-escalation of care discussed even if they declined (Discuss DNR or withdrawal of care, Hospice)? DNR status @ -No What co-morbidities impacted this encounter? (DM, HTN, Smoking, COPD, CAD, Cancer, CVA, ARF, Chemo, Hep., AIDS, mental health diagnosis, sleep apnea, morbid obesity)? @ -None Was patient admitted / discharged? Hospital course, mention meds given and route, prescriptions, significant lab abnormalities, going to OR and other pertinent info. @ -87-year-old female presents to the ER for generalized weakness for constit utional symptoms. Vital signs upon arrival shows temperature 100.6. 92% on 2 L nasal cannula. Patient well-appearing at the bedside she has no specific complaints. Laboratory evaluation obtained. Leukocytosis 10.7. Coag panel shows INR 4.1. Metabolic panel negative. No lactic acidosis. Magnesium 1.5. Urinalysis negative for UTI. Viral testing is negative. Chest x-ray and abdominal CT are negative. Patient clinical criteria is consistent with SIRS. There is no obvious source. Patient reevaluated bedside at 4:22 AM found to be stable. Pending blood cultures. Patient does not meet criteria for severe sepsis. Undiagnosed new problem with uncertain prognosis? @ -No Drug Therapy requiring intensive monitoring for toxicity (Heparin, Nitro, Insulin, Cardizem)? @ -No Were any procedures done? @ -No Diagnosis/symptom? Acute, or Chronic, or Acute on Chronic? Uncomplicated (wit hout systemic symptoms) or Complicated (systemic symptoms)? @ -SIRS Side effects of treatment? @ -No Exacerbation, Progression, or Severe Exacerbation? @ -No Poses a threat to life or bodily function? How? (Chest pain, [place], NJ, pneumonia, PE, COPD, DKA, ARF, appy, cholecystitis, CVA, Diverticulitis, Homicidal, Suicidal, threat to staff... and all critical care pts) @ -yes - Lab Data Result diagrams: 06/13/23 22:50 06/13/23 22:50 Lab Results 06/13/23 06/13/23 06/13/23 Range/Units 22:50 22:50 22:50 WBC 16.7 H (3.8-10.6) k/uL RBC 4.47 (3.80-5.40) m/uL Hgb 13.6 (11.4-16.0) gm/dL Hct 42.5 (34.0-46.0) % MCV 94.9 (80.0-100.0) fL MCH 30.4 (25.0-35.0) pg MCHC 32.1 (31.0-37.0) g/dL RDW 13.2 (11.5-15.5) % Plt Count 227 (150-450) k/uL MPV 8.0 Neutrophils % 89 % Lymphocytes % 6 % Monocytes % 3 % Eosinophils % 2 % Basophils % 0 % Neutrophils # 14.9 H (1.3-7.7) k/uL Lymphocytes # 1.0 (1.0-4.8) k/uL Monocytes # 0.4 (0-1.0) k/uL Eosinophils # 0.3 (0-0.7) k/uL Basophils # 0.1 (0-0.2) k/uL PT 39.6 H (10.0-12.5) sec INR 4.1 H (<1.2) APTT 51.1 H (22.0-30.0) sec Sodium 138 (137-145) mmol/L Potassium 4.2 (3.5-5.1) mmol/L Chloride 103 (98-107) mmol/L Carbon Dioxide 28 (22-30) mmol/L Anion Gap 7 mmol/L BUN 16 (7-17) mg/dL Creatinine 0.54 (0.52-1.04) mg/dL Est GFR (CKD-EPI)AfAm >90 (>60 ml/min/1.73 sqM) Est GFR (CKD-EPI)NonAf 86 (>60 ml/min/1.73 sqM) Glucose 152 H (74-99) mg/dL Plasma Lactic Acid Johan (0.7-2.0) mmol/L Calcium 9.1 (8.4-10.2) mg/dL Magnesium 1.5 L (1.6-2.3) mg/dL Total Bilirubin 0.5 (0.2-1.3) mg/dL AST 21 (14-36) U/L ALT 12 (4-34) U/L Alkaline Phosphatase 55 (38-126) U/L Total Protein 6.9 (6.3-8.2) g/dL Albumin 4.4 (3.5-5.0) g/dL Urine Color Urine Appearance (Clear) Urine pH (5.0-8.0) Ur Specific [place] (1.001-1.035) Urine Protein (Negative) Urine Glucose (UA) (Negative) Urine Ketones (Negative) Urine Blood (Negative) Urine Nitrite (Negative) Urine Bilirubin (Negative) Urine Urobilinogen (<2.0) mg/dL Ur Leukocyte Esterase (Negative) Urine RBC (0-5) /hpf Urine WBC (0-5) /hpf Ur Squamous Epith Cells (0-4) /hpf Urine Mucus (None) /hpf Influenza Type A (PCR) (Not Detectd) Influenza Type B (PCR) (Not Detectd) RSV (PCR) (Not Detectd) SARS-CoV-2 (PCR) (Not Detectd) 06/13/23 06/13/23 06/14/23 Range/Units 22:50 22:50 02:03 WBC (3.8-10.6) k/uL RBC (3.80-5.40) m/uL Hgb (11.4-16.0) gm/dL Hct (34.0-46.0) % MCV (80.0-100.0) fL MCH (25.0-35.0) pg MCHC (31.0-37.0) g/dL RDW (11.5-15.5) % Plt Count (150-450) k/uL MPV Neutrophils % % Lymphocytes % % Monocytes % % Eosinophils % % Basophils % % Neutrophils # (1.3-7.7) k/uL Lymphocytes # (1.0-4.8) k/uL Monocytes # (0-1.0) k/uL Eosinophils # (0-0.7) k/uL Basophils # (0-0.2) k/uL PT (10.0-12.5) sec INR (<1.2) APTT (22.0-30.0) sec Sodium (137-145) mmol/L Potassium (3.5-5.1) mmol/L Chloride (98-107) mmol/L Carbon Dioxide (22-30) mmol/L Anion Gap mmol/L BUN (7-17) mg/dL Creatinine (0.52-1.04) mg/dL Est GFR (CKD-EPI)AfAm (>60 ml/min/1.73 sqM) Est GFR (CKD-EPI)NonAf (>60 ml/min/1.73 sqM) Glucose (74-99) mg/dL Plasma Lactic Acid Johan 1.9 (0.7-2.0) mmol/L Calcium (8.4-10.2) mg/dL Magnesium (1.6-2.3) mg/dL Total Bilirubin (0.2-1.3) mg/dL AST (14-36) U/L ALT (4-34) U/L Alkaline Phosphatase (38-126) U/L Total Protein (6.3-8.2) g/dL Albumin (3.5-5.0) g/dL Urine Color Colorless Urine Appearance Clear (Clear) Urine pH 5.0 (5.0-8.0) Ur Specific [place] >1.050 H (1.001-1.035) Urine Protein Trace H (Negative) Urine Glucose (UA) Negative (Negative) Urine Ketones Trace H (Negative) Urine Blood Negative (Negative) Urine Nitrite Negative (Negative) Urine Bilirubin Negative (Negative) Urine Urobilinogen <2.0 (<2.0) mg/dL Ur Leukocyte Esterase Small H (Negative) Urine RBC 1 (0-5) /hpf Urine WBC 1 (0-5) /hpf Ur Squamous Epith Cells 5 H (0-4) /hpf Urine Mucus Rare H (None) /hpf Influenza Type A (PCR) Not Detected (Not Detectd) Influenza Type B (PCR) Not Detected (Not Detectd) RSV (PCR) Not Detected (Not Detectd) SARS-CoV-2 (PCR) Not Detected (Not Detectd) Disposition Clinical Impression: SIRS (systemic inflammatory response syndrome) Disposition: ADMITTED IP TO THIS HOSP Condition: Fair Referrals: None,Stated [REFERRING] - 1-2 days Decision Time: 04:23
[2023-06-13 23:20] LABS: Basophils # (A) 0.1 k/uL (0-0.2); Basophils % (A) 0 %; Eosinophils # (A) 0.3 k/uL (0-0.7); Eosinophils % (A) 2 %; HCT 42.5 % (34.0-46.0); HGB 13.6 gm/dL (11.4-16.0); Lymphocytes % (A) 6 %; MCH 30.4 pg (25.0-35.0); MCHC 32.1 g/dL (31.0-37.0); MCV 94.9 fL (80.0-100.0); Monocytes # (A) 0.4 k/uL (0-1.0); Monocytes % (A) 3 %; Neutrophils # (A) 14.9 k/uL (1.3-7.7); Neutrophils % (A) 89 %; Platelet Count 227 k/uL (150-450); RBC 4.47 m/uL (3.80-5.40); RDW 13.2 % (11.5-15.5); WBC 16.7 k/uL (3.8-10.6)
[2023-06-13 23:34] LABS: ALT 12 U/L (4-34); AST 21 U/L (14-36); African American GFR (CKD) >90 (>60 ml/min/1.73 sqM); Albumin 4.4 g/dL (3.5-5.0); Alkaline Phosphatase 55 U/L (38-126); Anion Gap 7 mmol/L; Blood Urea Nitrogen 16 mg/dL (7-17); Calcium 9.1 mg/dL (8.4-10.2); Carbon Dioxide 28 mmol/L (22-30); Chloride 103 mmol/L (98-107); Glucose 152 mg/dL (74-99); Magnesium 1.5 mg/dL (1.6-2.3); Non-African American GFR(CKD) 86 (>60 ml/min/1.73 sqM); Potassium 4.2 mmol/L (3.5-5.1); Sodium 138 mmol/L (137-145); Total Bilirubin 0.5 mg/dL (0.2-1.3); Total Protein 6.9 g/dL (6.3-8.2)
[2023-06-13 23:44] LABS: INR 4.1 (<1.2); Partial Thromboplastin Time 51.1 sec (22.0-30.0); Prothrombin Time 39.6 sec (10.0-12.5)
--- NOTE | 2023-06-14 00:46 | XR ---
ADDENDUM - Added by Andres Mariee MD on 06/14/2023 1:05 AM (-06:00) Impression: Mild enlarged cardiac silhouette. Pulmonary vascular congestion. Comparison 04/15/2019. Findings: Median sternotomy wires. Calcified plaque thoracic aorta. No consolidation. EXAM: XR Chest, 2 Views CLINICAL HISTORY: ITS.REASON XR Reason: fever TECHNIQUE: Frontal and lateral views of the chest. COMPARISON: No relevant prior studies available. FINDINGS: Lungs: No consolidation. Pleural space: Unremarkable. No pneumothorax. Heart: Mitral annular calcification. Calcification in the aortic valve. Bones/joints: No acute osseous abnormality. Vasculature: Calcified and noncalcified plaque aorta and branches. Tubes, lines and devices: Device in the right ventricle. Upper abdomen: Cholecystectomy. Colonic diverticulosis. Other findings: Hysterectomy. IMPRESSION: 1. No acute disease. 2. Colonic diverticulosis.
--- NOTE | 2023-06-14 01:03 | CT ---
EXAM: CT Abdomen and Pelvis With Intravenous Contrast CLINICAL HISTORY: ITS.REASON CT Reason: fever TECHNIQUE: Axial computed tomography images of the abdomen and pelvis with intravenous contrast. CTDI is 22 mGy and DLP is 1021.4 mGy-cm. This CT exam was performed using one or more of the following dose reduction techniques: automated exposure control, adjustment of the mA and/or kV according to patient size, and/or use of iterative reconstruction technique. COMPARISON: No relevant prior studies available. FINDINGS: Heart: Mitral annular calcification. Calcification in the aortic valve. ABDOMEN: Liver: No acute findings. No mass. Gallbladder and bile ducts: Cholecystectomy. No ductal dilation. Pancreas: Unremarkable. No mass. No ductal dilation. Spleen: Unremarkable. No splenomegaly. Adrenals: Unremarkable. No mass. Kidneys and ureters: Unremarkable. No solid mass. No hydronephrosis. Stomach and bowel: Colonic diverticulosis. No obstruction. No mucosal thickening. PELVIS: Appendix: No findings to suggest acute appendicitis. Bladder: Unremarkable. No mass. Reproductive: Hysterectomy. ABDOMEN and PELVIS: Intraperitoneal space: Unremarkable. No free air. No significant fluid collection. Bones/joints: No acute fracture. No dislocation. Soft tissues: Unremarkable. Vasculature: Calcified and noncalcified plaque aorta and branches. No abdominal aortic aneurysm. Lymph nodes: Unremarkable. No enlarged lymph nodes. Tubes, lines and devices: Device in the right ventricle. IMPRESSION: 1. No acute disease. 2. Colonic diverticulosis.
[2023-06-14 03:23] LABS: Appearance,Urine Clear (Clear); Bilirubin,Urine Negative (Negative); Blood,Urine Negative (Negative); Color,Urine Colorless; Glucose,Urine (UA) Negative (Negative); Ketones,Urine Trace (Negative); Leukocyte Esterase,Urine Small (Negative); Mucus,Urine Rare /hpf; Nitrite,Urine Negative (Negative); Protein,Urine Trace (Negative); RBC,Urine 1 /hpf (0-5); Squamous Epithelial Cell,Urine 5 /hpf (0-4); Urobilinogen,Urine <2.0 mg/dL (<2.0); WBC,Urine 1 /hpf (0-5)
[2023-06-14 04:12] LABS: Specific Gravity,Urine >1.050 (1.001-1.035)
[2023-06-14] MEDS ORDERED: NALOXONE 0.4 MG/ML 1 ML VIAL IV PRN (04:18)
[2023-06-14] MEDS: SODIUM CHLORIDE 0.9% 1,000 ML IV SCH (05:27)
[2023-06-14] MEDS: MAGNESIUM SULFATE-D5W PMX 1 GM in DEXTROSE/WATER 1 100ML.BAG IVPB SCH (05:27)
[2023-06-14 13:45] LABS: INR 1.9 (<1.2); Prothrombin Time 18.9 sec (10.0-12.5)
[2023-06-14] MEDS ORDERED: LACTULOSE 20 GM/30 ML CUP PO PRN (15:35)
[2023-06-14] MEDS ORDERED: ONDANSETRON 4 MG/2 ML VIAL IVP PRN (15:35)
[2023-06-14] MEDS ORDERED: CALCIUM CARBONATE 500 MG CHEWABLE PO PRN (15:35)
[2023-06-14] MEDS ORDERED: LORazepam 0.5 MG TAB PO PRN (15:35)
[2023-06-14] MEDS ORDERED: TEMAZEPAM 15 MG CAP PO PRN (15:35)
[2023-06-14] MEDS: metFORMIN 500 MG TAB PO SCH (16:40)
[2023-06-14] MEDS: LEVOTHYROXINE 100 MCG TAB PO SCH (16:40)
[2023-06-14] MEDS: METOPROLOL TARTRATE 50 MG TAB PO SCH (16:40)
[2023-06-14] MEDS: GABAPENTIN 100 MG CAP PO SCH ×2 (16:40→21:30)
[2023-06-14] MEDS: WARFARIN 3 MG TAB PO SCH (16:55)
[2023-06-14] MEDS: DIGOXIN 125 MCG TAB PO SCH (16:55)
--- NOTE | 2023-06-14 18:17 | P.HPIM ---
History of Present Illness H&P Date: 06/14/23 Chief Complaint: Fever This is a pleasant 87-year-old patient who follows with Dr. Naomi Westfall. Chronic stable medical conditions include atrial fibrillation, CAD, diabetes, hypertension, hypothyroid. CAD with previous bypass. Expressive dysphagia due to prior intracranial hemorrhage Patient is somewhat of a forgetful/limited historian. No family at the bedside. As per the EMS report: Per family patient has been shaking trouble swallowing GI upset for a few hours. Patient history of intracranial hemorrhage and expressive aphasia secondary to this. Also did seem to report some chest pain. Some shortness of breath. Nauseated. Does feel weak. Some dizziness. Patient does state that she has had some fever. Decreased appetite. Has been having nasal sinus drainage. Clear. Patient did record of temperature of 101.2 in the ER. Some cough. Review of systems: GEN.: [Tired, decreased appetite fever EYES: None HEENT: Nasal drainage NECK: None RESPIRATORY: As above e CARDIOVASCULAR: No diarrhea GASTROINTESTINAL: None GENITOURINARY: None MUSCULOSKELETAL: None LYMPHATICS: None HEMATOLOGICAL: None PSYCHIATRY: None NEUROLOGICAL: Expressive dysarthria Social history: Lives with family. Denies any smoking or alcohol Physical examination: VITAL SIGNS: 101.2, 77, 22, 110 x 71, 91% on 3 L GENERAL: BMI 23.4, reclining bed awake tired. EYES: Pupils equal. Conjunctiva shoaib l. HEENT: External appearance of nose and ears normal, oral cavity grossly normal. NECK: JVD not raised; masses not palpable. HEART: First and second heart sounds are normal; no edema. LUNGS: Respiratory rate increased; diminished breath sounds. ABDOMEN: Soft, nontender, liver spleen not palpable, no masses palpable. PSYCH: Patient is able to answer questions. Mood affect appears to be normal l. MUSCULOSKELETAL:No Clubbing/cyanosis;muscles-grossly intact NEUROLOGICAL: Patient sometimes has trouble finding words. No facial asymmetry, power and sensation grossly intact. LYMPHATICS: No lymph nodes palpable in the axilla and neck INVESTIGATIONS, reviewed in the clinical context: June 13: INR 1.9 Procalcitonin: 0.05 June 13, 2023: White count 16.7 hemoglobin 13.6 platelets 227 INR 4.1 sodium 138 potassium 4.2 creatinine 0.54 Influenza type A, type B, RSV, COVID-19: Not detected CT scan abdomen pelvis: Nothing acute. Colonic diverticulosis EKG tracing personally reviewed by me-possible atrial fibrillation rate Controlled Chest x-ray film personally reviewed by me-some scattered infiltrates faint Assessment plan: -Suspect pneumonia. Scanty infiltrates. Normal procalcitonin. Causing acute hypoxic respiratory failure. 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 Lopressor 50 mg twice daily. Coumadin -Coumadin monitoring By pharmacy -Peripheral neuropathy Neurontin -Hypothyroid Synthroid -Possible acute sinusitis with drainage. Claritin-D -Diabetes mellitus type 2 on oral hypoglycemic Metformin. Accu-Cheks with sliding scale insulin -Full code Past Medical History Past Medical History: Atrial Fibrillation, Coronary Artery Disease (CAD), Diabetes Mellitus, Hyperlipidemia, Thyroid Disorder History of Any Multi-Drug Resistant Organisms: None Reported Past Surgical History: Coronary Bypass/CABG Past Psychological History: No Psychological Hx Reported Past Alcohol Use History: None Reported Past Drug Use History: None Reported Medications and Allergies Home Medications Medication Instructions Recorded Confirmed Type Cranberry Fruit Extract [Cranberry] 500 mg PO DAILY 08/07/18 06/14/23 History Digoxin [Lanoxin] 125 mcg PO DAILY 08/07/18 06/14/23 History Glimepiride [Amaryl] 1 mg PO AC-BRKFST 08/07/18 06/14/23 History Levothyroxine Sodium [Synthroid] 100 mcg PO DAILY 08/07/18 06/14/23 History Metoprolol Tartrate [Lopressor] 50 mg PO BID 08/07/18 06/14/23 History Ubidecarenone [Co Q-10] 200 mg PO DAILY 08/07/18 06/14/23 History metFORMIN HCL [Glucophage] 1,000 mg PO BID 08/07/18 06/14/23 History Gabapentin [Neurontin] 100 mg PO DAILY 06/14/23 06/14/23 History Gabapentin [Neurontin] 200 mg PO HS 06/14/23 06/14/23 History L.acidoph,Paracasei, B.lactis 1 cap PO DAILY 06/14/23 06/14/23 History [Probiotic] Loratadine [Claritin] 10 mg PO DAILY 06/14/23 06/14/23 History Lutein 10 mg PO DAILY 06/14/23 06/14/23 History Stool Softner 250mg 250 mg PO DAILY 06/14/23 06/14/23 History Warfarin [Coumadin] 3 mg PO DAILY 06/14/23 06/14/23 History Allergies Allergy/AdvReac Type Severity Reaction Status Date / Time Penicillins Allergy Unknown Verified 06/14/23 11:37 Pqnhqll-JCK-DuA Reductase Allergy Unknown Verified 06/14/23 11:37 Inhibitor [Vcxkllf-Mur-Ukb Reductase Inhibitor] Sulfa (Sulfonamide Allergy Unknown Verified 06/14/23 11:37 Antibiotics) Physical Exam Vitals: Vital Signs Temp Pulse Pulse Resp BP BP Pulse Ox 06/14/23 10:15 98.1 F 69 16 115/77 93 L 06/14/23 06:36 99.1 F 85 20 119/64 95 06/14/23 05:38 99.4 F 71 16 117/54 97 06/14/23 03:36 100.7 F H 74 15 129/50 94 L 06/14/23 02:00 78 20 117/48 92 L 06/14/23 01:57 79 18 117/48 92 L 06/14/23 01:09 100.6 F H 80 16 124/55 92 L 06/13/23 23:13 80 20 121/72 92 L 06/13/23 21:42 101.2 F H 77 22 110/71 91 L Intake and Output 06/13/23 06/14/23 06/14/23 22:59 06:59 14:59 Other: Voiding Method Diaper Weight 65.7 kg Results CBC & Chem 7: 06/13/23 22:50 06/13/23 22:50 Labs: Abnormal Lab Results - Last 24 Hours (Table) 06/13/23 06/13/23 06/13/23 Range/Units 22:50 22:50 22:50 WBC 16.7 H (3.8-10.6) k/uL Neutrophils # 14.9 H (1.3-7.7) k/uL PT 39.6 H (10.0-12.5) sec INR 4.1 H (<1.2) APTT 51.1 H (22.0-30.0) sec Glucose 152 H (74-99) mg/dL Magnesium 1.5 L (1.6-2.3) mg/dL Ur Specific [place] (1.001-1.035) Urine Protein (Negative) Urine Ketones (Negative) Ur Leukocyte Esterase (Negative) Ur Squamous Epith Cells (0-4) /hpf Urine Mucus (None) /hpf 06/14/23 Range/Units 02:03 WBC (3.8-10.6) k/uL Neutrophils # (1.3-7.7) k/uL PT (10.0-12.5) sec INR (<1.2) APTT (22.0-30.0) sec Glucose (74-99) mg/dL Magnesium (1.6-2.3) mg/dL Ur Specific [place] >1.050 H (1.001-1.035) Urine Protein Trace H (Negative) Urine Ketones Trace H (Negative) Ur Leukocyte Esterase Small H (Negative) Ur Squamous Epith Cells 5 H (0-4) /hpf Urine Mucus Rare H (None) /hpf
[2023-06-14] MEDS: LACTATED RINGERS 1,000 ML IV SCH (21:30)
[2023-06-14] MEDS: LEVOFLOXACIN 500MG-D5W PMX 500 MG in DEXTROSE/WATER 1 100ML.BAG IVPB ONE (21:31)
[2023-06-14] MEDS: LORATADINE-PSEUDOEPH 5-120 MG 1 EACH TAB.ER.12H PO SCH (21:40)
[2023-06-15 07:58] LABS: Glucose,Whole Blood 146 mg/dL (70-110)
--- NOTE | 2023-06-15 08:37 | P.CONS ---
History of Present Illness - Reason for Consult Consult date: 06/14/23 SIRS Requesting physician: Chaz Cross - Chief Complaint Shaking chills and rigors x 1 day - History of Present Illness Patient is a 87-year-old female with a past medical history significant for diabetes mellitus coronary artery disease atrial fibrillation hyperlipidemia, patient was brought in the hospital concerning for shaking chills and rigors symptoms started the day of presentation to the hospital and the patient was so weak to get into the car patient slammed on and was difficult for the family to bring the patient here EMS was calling on arrival to the emergency patient was noticed to have temperature of 101 F patient subsequently was brought into the hospital for further evaluation patient denies having any URI symptoms denies having any chest pain or shortness with occasional cough did have some nausea but no vomiting no abdominal pain or diarrhea very vague urinary symptoms patient on presentation to the hospital did have a fever of 101.2 F patient was nontachycardic hypertensive she was mildly hypoxic on 2 L nasal cannula oxygen did have white count of 16.7 with a left shift creatinine was normal urine was mildly positive influenza RSV COVID testing was negative blood cultures obtained which are currently pending patient did have a abdominal pelvis CT no acute disease colonic diverticulosis chest x-ray no consolidation no pneumothorax patient was given Levaquin because of her penicillin allergy infectious disease was consulted for further management of antibiotic therapy Review of Systems Positive point and negatives has been mentioned in the HPI, complete review of systems was performed and all other systems are negative Past Medical History Past Medical History: Atrial Fibrillation, Coronary Artery Disease (CAD), Diabetes Mellitus, Hyperlipidemia, Thyroid Disorder History of Any Multi-Drug Resistant Organisms: None Reported Past Surgical History: Coronary Bypass/CABG Past Psychological History: No Psychological Hx Reported Past Alcohol Use History: None Reported Past Drug Use History: None Reported - Past Family History Father Brother(s) History Unknown: Yes Mother Sister(s) History Unknown: Yes Medications and Allergies Home Medications Medication Instructions Recorded Confirmed Type Cranberry Fruit Extract [Cranberry] 500 mg PO DAILY 08/07/18 06/14/23 History Digoxin [Lanoxin] 125 mcg PO DAILY 08/07/18 06/14/23 History Glimepiride [Amaryl] 1 mg PO [id number] 08/07/18 06/14/23 History Levothyroxine Sodium [Synthroid] 100 mcg PO DAILY 08/07/18 06/14/23 History Metoprolol Tartrate [Lopressor] 50 mg PO BID 08/07/18 06/14/23 History Ubidecarenone [Co Q-10] 200 mg PO DAILY 08/07/18 06/14/23 History metFORMIN HCL [Glucophage] 1,000 mg PO BID 08/07/18 06/14/23 History Gabapentin [Neurontin] 100 mg PO DAILY 06/14/23 06/14/23 History Gabapentin [Neurontin] 200 mg PO HS 06/14/23 06/14/23 History L.acidoph,Paracasei, B.lactis 1 cap PO DAILY 06/14/23 06/14/23 History [Probiotic] Lutein 10 mg PO DAILY 06/14/23 06/14/23 History Stool Softner 250mg 250 mg PO DAILY 06/14/23 06/14/23 History Warfarin [Coumadin] 3 mg PO DAILY 06/14/23 06/14/23 History Loratadine [Claritin] 5 mg PO BID #0 06/16/23 06/14/23 Rx cefUROXime axetiL [Ceftin] 500 mg PO BID 1 Days #2 tab 06/16/23 Rx Allergies Allergy/AdvReac Type Severity Reaction Status Date / Time Penicillins Allergy Unknown Verified 06/14/23 11:37 Obznoxo-FTO-WuR Reductase Allergy Unknown Verified 06/14/23 11:37 Inhibitor [Cvleksj-Rhj-Edc Reductase Inhibitor] Sulfa (Sulfonamide Allergy Unknown Verified 06/14/23 11:37 Antibiotics) Physical Exam Vitals: Vital Signs Temp Pulse Pulse Resp BP BP Pulse Ox 06/14/23 10:15 98.1 F 69 16 115/77 93 L 06/14/23 06:36 99.1 F 85 20 119/64 95 06/14/23 05:38 99.4 F 71 16 117/54 97 06/14/23 03:36 100.7 F H 74 15 129/50 94 L 06/14/23 02:00 78 20 117/48 92 L 06/14/23 01:57 79 18 117/48 92 L 06/14/23 01:09 100.6 F H 80 16 124/55 92 L 06/13/23 23:13 80 20 121/72 92 L 06/13/23 21:42 101.2 F H 77 22 110/71 91 L Intake and Output 06/13/23 06/14/23 06/14/23 22:59 06:59 14:59 Other: Voiding Method Diaper Weight 65.7 kg GENERAL DESCRIPTION: Elderly female lying in bed, no distress. No tachypnea or accessory muscle of respiration use. HEENT: Shows Pallor , no scleral icterus. Oral mucous membrane is dry. No pharyngeal erythema or thrush NECK: Trachea central, no thyromegaly. LUNGS: Unlabored breathing. Clear to auscultation anteriorly. No wheeze or crackle. HEART: S1, S2, regular rate and rhythm. No loud murmur ABDOMEN: Soft, no tenderness , guarding or rigidity, no organomegaly EXTREMITIES: No edema of feet. SKIN: No rash, no masses palpable. NEUROLOGICAL: The patient is awake, alert, oriented x3, mood and affect normal. Results CBC & Chem 7: 06/16/23 06:10 06/16/23 06:10 Labs: Abnormal Lab Results - Last 24 Hours (Table) 06/13/23 06/13/23 06/13/23 Range/Units 22:50 22:50 22:50 WBC 16.7 H (3.8-10.6) k/uL Neutrophils # 14.9 H (1.3-7.7) k/uL PT 39.6 H (10.0-12.5) sec INR 4.1 H (<1.2) APTT 51.1 H (22.0-30.0) sec Glucose 152 H (74-99) mg/dL Magnesium 1.5 L (1.6-2.3) mg/dL Ur Specific [place] (1.001-1.035) Urine Protein (Negative) Urine Ketones (Negative) Ur Leukocyte Esterase (Negative) Ur Squamous Epith Cells (0-4) /hpf Urine Mucus (None) /hpf 06/14/23 Range/Units 02:03 WBC (3.8-10.6) k/uL Neutrophils # (1.3-7.7) k/uL PT (10.0-12.5) sec INR (<1.2) APTT (22.0-30.0) sec Glucose (74-99) mg/dL Magnesium (1.6-2.3) mg/dL Ur Specific [place] >1.050 H (1.001-1.035) Urine Protein Trace H (Negative) Urine Ketones Trace H (Negative) Ur Leukocyte Esterase Small H (Negative) Ur Squamous Epith Cells 5 H (0-4) /hpf Urine Mucus Rare H (None) /hpf Assessment and Plan (1) UTI (urinary tract infection) Status: Acute Code(s): N39.0 - URINARY TRACT INFECTION, SITE NOT SPECIFIED SNOMED Code(s): 23920189 (2) Allergy to multiple antibiotics Status: Acute Code(s): Z88.1 - ALLERGY STATUS TO OTHER ANTIBIOTIC AGENTS SNOMED Code(s): 731958405 (3) SIRS (systemic inflammatory response syndrome) Status: Acute Code(s): R65.10 - SIRS OF NON-INFECTIOUS ORIGIN W/O ACUTE ORGAN DYSFUNCTION SNOMED Code(s): 324340131 Plan: 1patient is in the hospital with fever rigors and chills some weak urinary sym ptoms mildly positive UA high in the clinic suspicious for urinary source of her fever as the patient did have a chest x-ray that was reported negative for any pneumonia CT abdominal pelvis did not show any acute abnormality and no evidence of any cellulitis or joint swelling. 2patient with multiple antibiotic ALLERGIES that would limit the number of antibiotic safe to use. 3we will discontinue Levaquin. 4start the patient on Rocephin 2 g daily while waiting for the culture to finalize We will follow on clinical condition and cultures to further adjust medication if needed Thank you for this consultation we will follow the patient along with you Dictation was produced using [employer] dictation software. please excuse any grammatical, word or spelling errors. Time with Patient: Greater than 30
[2023-06-15 10:07] LABS: INR 1.8 (<1.2); Prothrombin Time 18.5 sec (10.0-12.5)
--- NOTE | 2023-06-15 13:39 | P.PN ---
Progress Note - Text Progress Note Date: 06/15/23 Chief Complaint: Fever This is a pleasant 87-year-old patient who follows with Dr. Naomi Westfall. Chronic stable medical conditions include atrial fibrillation, CAD, diabetes, hypertension, hypothyroid. CAD with previous bypass. Expressive dysphagia due to prior intracranial hemorrhage Patient is somewhat of a forgetful/limited historian. No family at the bedside. As per the EMS report: Per family patient has been shaking trouble swallowing GI upset for a few hours. Patient history of intracranial hemorrhage and expressive aphasia secondary to this. Also did seem to report some chest pain. Some shortness of breath. Nauseated. Does feel weak. Some dizziness. Patient does state that she has had some fever. Decreased appetite. Has been having nasal sinus drainage. Clear. Patient did record of temperature of 101.2 in the ER. Some cough. June 14: Admitted with pneumonia, sepsis. IV fluids. IV ceftriaxone. Doing a bit better today. Did eat a light breakfast. No fever. Some tachycardia. Active Medications Calcium Carbonate/Glycine (Calcium Carbonate 500 Mg Chewable) 1,000 mg PO Q4HR PRN PRN Reason: Dyspepsia Digoxin (Digoxin 125 Mcg Tab) 125 mcg PO DAILY [facility] Last Admin: 06/15/23 08:05 Dose: 125 mcg Gabapentin (Gabapentin 100 Mg Cap) 100 mg PO DAILY [facility] Last Admin: 06/15/23 08:05 Dose: 100 mg Gabapentin (Gabapentin 100 Mg Cap) 200 mg PO HS [facility] Last Admin: 06/14/23 21:30 Dose: 200 mg Lactated Ringer's (Lactated Ringers) 1,000 mls @ 100 mls/hr IV .Q10H [facility] Last Admin: 06/15/23 12:44 Dose: 100 mls/hr Ceftriaxone Sodium 2 gm/ (Sodium Chloride) 50 mls @ 100 mls/hr IVPB Q24HR [facility]; Protocol Last Admin: 06/15/23 09:21 Dose: 100 mls/hr Lactulose (Lactulose 20 Gm/30 Ml Cup) 20 gm PO DAILY PRN PRN Reason: Constipation Levothyroxine Sodium (Levothyroxine 100 Mcg Tab) 100 mcg PO 0630 [facility] Last Admin: 06/15/23 06:37 Dose: 100 mcg Loratadine/Pseudoephedrine Sulfate (Loratadine-Pseudoeph 5-120 Mg 1 Each Tab.Er.12h) 1 each PO Q12HR [facility] Last Admin: 06/15/23 08:13 Dose: Not Given Lorazepam (Lorazepam 0.5 Mg Tab) 0.5 mg PO Q6HR PRN PRN Reason: Anxiety Metformin HCl (Metformin 500 Mg Tab) 1,000 mg PO BID [facility] Last Admin: 06/15/23 08:05 Dose: 1,000 mg Metoprolol Tartrate (Metoprolol Tartrate 50 Mg Tab) 50 mg PO BID [facility] Last Admin: 06/15/23 08:05 Dose: 50 mg Miscellaneous Information (Warfarin Per Pharmacy) 0 each MISCELLANE DIRECTED PRN PRN Reason: PER PROTOCOL Naloxone HCl (Naloxone 0.4 Mg/Ml 1 Ml Vial) 0.2 mg IV Q2M PRN PRN Reason: Opioid Reversal Ondansetron HCl (Ondansetron 4 Mg/2 Ml Vial) 4 mg IVP Q8HR PRN PRN Reason: Nausea And Vomiting Temazepam (Temazepam 15 Mg Cap) 15 mg PO HS PRN PRN Reason: Insomnia Warfarin Sodium (Warfarin 3 Mg Tab) 3 mg PO DAILY@1800 [facility]; Protocol Last Admin: 06/14/23 16:55 Dose: 3 mg Social history: Lives with family. Denies any smoking or alcohol Physical examination: VITAL SIGNS: 98.6, 101, 16, 101 x 57, 90% on 2 L GENERAL: Laying in bed, tired EYES: Pupils equal. Conjunctiva shoaib l. HEENT: External appearance of nose and ears normal, oral cavity grossly normal. NECK: JVD not raised; masses not palpable. HEART: First and second heart sounds are normal; no edema. LUNGS: Respiratory rate increased; diminished breath sounds. ABDOMEN: Soft, nontender, liver spleen not palpable, no masses palpable. PSYCH: Patient is able to answer questions. Mood affect appears to be normal l. NEUROLOGICAL: Patient sometimes has trouble finding words. No facial asymmetry, power and sensation grossly intact. INVESTIGATIONS, reviewed in the clinical context: June 13: INR 1.9 Procalcitonin: 0.05 June 13, 2023: White count 16.7 hemoglobin 13.6 platelets 227 INR 4.1 sodium 138 potassium 4.2 creatinine 0.54 Influenza type A, type B, RSV, COVID-19: Not detected CT scan abdomen pelvis: Nothing acute. Colonic diverticulosis EKG tracing personally reviewed by me-possible atrial fibrillation rate Controlled Chest x-ray film personally reviewed by me-some scattered infiltrates faint Assessment plan: -Suspect pneumonia. Scanty infiltrates. Normal procalcitonin. Causing acute hypoxic respiratory failure. 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 Lopressor 50 mg twice daily. Coumadin -Coumadin monitoring By pharmacy -Peripheral neuropathy Neurontin -Hypothyroid Synthroid -Possible acute sinusitis with drainage. Claritin-D -Diabetes mellitus type 2 on oral hypoglycemic Metformin. Accu-Cheks with sliding scale insulin -Full code Continue IV ceftriaxone. Claritin B. Oxygen supplementation. Have the patient sit up in a chair. Incentive spirometry. Past Medical History Past Medical History: Atrial Fibrillation, Coronary Artery Disease (CAD), Diabetes Mellitus, Hyperlipidemia, Thyroid Disorder History of Any Multi-Drug Resistant Organisms: None Reported Past Surgical History: Coronary Bypass/CABG Past Psychological History: No Psychological Hx Reported Past Alcohol Use History: None Reported Past Drug Use History: None Reported
--- NOTE | 2023-06-15 14:00 | P.PN ---
Subjective Progress Note Date: 06/15/23 Principal diagnosis: Reason for follow-up is fever possible UTI Patient is a 87-year-old female with a past medical history significant for diabetes mellitus coronary artery disease atrial fibrillation hyperlipidemia, patient was brought in the hospital concerning for shaking chills and rigors, patient was noted to be febrile with initial workup negative including CT abdominal pelvis and chest x-ray urine was mildly positive. On today's visit that is 06/15/2023 06/15/2023,the patient did have resolution of her fever and is afebrile today, patient is on 2 L nasal cannula supplemental oxygen and denies any shortness of breath no chest pain or cough.Patient denies having any nausea or vomiting, no abdominal pain and no diarrhea has been reported. No new labs has been obtained today cultures so far pending Objective - Vital Signs Vital signs: Vital Signs Temp 98.6 F 06/15/23 07:40 Pulse 101 H 06/15/23 07:40 Resp 16 06/15/23 07:40 BP 101/57 06/15/23 07:40 Pulse Ox 90 L 06/15/23 07:40 FiO2 Intake & Output 06/14/23 06/15/23 06/15/23 18:59 06:59 18:59 Other: Voiding Method Diaper Diaper - Exam GENERAL DESCRIPTION: An elderly female lying in bed in no distress RESPIRATORY SYSTEM: Unlabored breathing , decreased breath sounds at bases HEART: S1 S2 regular rate and rhythm , ABDOMEN: Soft , no tenderness EXTREMITIES: No edema feet - Labs CBC & Chem 7: 06/13/23 22:50 06/13/23 22:50 Labs: Abnormal Lab Results - Last 24 Hours (Table) 06/14/23 06/15/23 06/15/23 Range/Units 13:14 07:56 09:14 PT 18.9 H 18.5 H (10.0-12.5) sec INR 1.9 H 1.8 H (<1.2) POC Glucose (mg/dL) 146 H (70-110) mg/dL Microbiology - Last 24 Hours (Table) 06/13/23 22:50 Blood Culture - Preliminary Blood Assessment and Plan (1) SIRS (systemic inflammatory response syndrome) Current Visit: Yes Status: Acute Code(s): R65.10 - SIRS OF NON-INFECTIOUS ORIGIN W/O ACUTE ORGAN DYSFUNCTION SNOMED Code(s): 846801987 Plan: 1patient is in the hospital with fever rigors and chills some weak urinary symptoms mildly positive UA high in the clinic suspicious for urinary source of her fever as the patient did have a chest x-ray that was reported negative for any pneumonia CT abdominal pelvis did not show any acute abnormality and no evidence of any cellulitis or joint swelling. 2patient with multiple antibiotic ALLERGIES that would limit the number of antibiotic safe to use. 3patient to continue with Rocephin 2 g daily while waiting for the culture to finalize antibiotic clinical course closely Dictation was produced using [employer] dictation software. please excuse any grammatical, word or spelling errors. Time with Patient: Less than 30
[2023-06-15] MEDS ORDERED: LEVOFLOXACIN 500MG-D5W PMX 500 MG in DEXTROSE/WATER 1 100ML.BAG IVPB SCH (18:00)
[2023-06-15 20:56] LABS: Glucose,Whole Blood 115 mg/dL (70-110)
[2023-06-16 06:13] LABS: Glucose,Whole Blood 108 mg/dL (70-110)
[2023-06-16 06:35] LABS: Basophils # (A) 0.1 k/uL (0-0.2); Basophils % (A) 1 %; Eosinophils # (A) 0.3 k/uL (0-0.7); Eosinophils % (A) 3 %; HCT 38.7 % (34.0-46.0); HGB 12.8 gm/dL (11.4-16.0); Lymphocytes # (A) 2.1 k/uL (1.0-4.8); Lymphocytes % (A) 25 %; MCH 31.8 pg (25.0-35.0); MCHC 33.1 g/dL (31.0-37.0); Mean Platelet Volume 8.4; Monocytes # (A) 0.5 k/uL (0-1.0); Monocytes % (A) 6 %; Neutrophils # (A) 5.2 k/uL (1.3-7.7); Neutrophils % (A) 63 %; Platelet Count 210 k/uL (150-450); RBC 4.04 m/uL (3.80-5.40); RDW 13.2 % (11.5-15.5); WBC 8.4 k/uL (3.8-10.6)
[2023-06-16 06:44] LABS: INR 1.8 (<1.2); Prothrombin Time 18.1 sec (10.0-12.5)
[2023-06-16 06:47] LABS: African American GFR (CKD) >90 (>60 ml/min/1.73 sqM); Anion Gap 5 mmol/L; Blood Urea Nitrogen 16 mg/dL (7-17); Calcium 9.1 mg/dL (8.4-10.2); Carbon Dioxide 30 mmol/L (22-30); Chloride 102 mmol/L (98-107); Glucose 110 mg/dL (74-99); Non-African American GFR(CKD) 83 (>60 ml/min/1.73 sqM); Sodium 137 mmol/L (137-145)
[2023-06-16 07:00] LABS: C Reactive Protein 18.9 mg/dL (<1.0)
--- NOTE | 2023-06-16 11:23 | P.PN ---
Subjective Progress Note Date: 06/16/23 Principal diagnosis: Reason for follow-up is fever possible UTI Patient is a 87-year-old female with a past medical history significant for diabetes mellitus coronary artery disease atrial fibrillation hyperlipidemia, patient was brought in the hospital concerning for shaking chills and rigors, patient was noted to be febrile with initial workup negative including CT abdominal pelvis and chest x-ray urine was mildly positive. On today's visit that is 06/16/2023, the patient did have a low-grade 400.1 yesterday afternoon however the patient is afebrile this morning, the patient is on room air and breathing comfortably, the Pt denies having any chest pain or cough, the patient denies having any abdominal pain no vomiting or any diarrhea has been reported by the nursing staff. Patient white count normalized to 8.4, creatinine 0.61 blood culture 0.14 cultures currently pending Objective - Vital Signs Vital signs: Vital Signs Temp 97.7 F 06/16/23 01:37 Pulse 111 H 06/16/23 01:37 Resp 16 06/16/23 01:37 BP 107/72 06/16/23 01:37 Pulse Ox 96 06/16/23 01:37 FiO2 Intake & Output 06/15/23 06/16/23 06/16/23 18:59 06:59 18:59 Weight 65.7 kg Other: Voiding Method Diaper Diaper # Voids 2 1 - Exam GENERAL DESCRIPTION: An elderly female lying in bed in no distress RESPIRATORY SYSTEM: Unlabored breathing , decreased breath sounds at bases HEART: S1 S2 regular rate and rhythm , ABDOMEN: Soft , no tenderness EXTREMITIES: No edema feet - Labs CBC & Chem 7: 06/16/23 06:10 06/16/23 06:10 Labs: Abnormal Lab Results - Last 24 Hours (Table) 06/15/23 06/16/23 06/16/23 Range/Units 20:54 06:10 06:10 PT (10.0-12.5) sec INR (<1.2) Glucose 110 H (74-99) mg/dL POC Glucose (mg/dL) 115 H (70-110) mg/dL C-Reactive Protein 18.9 H (<1.0) mg/dL Procalcitonin 0.14 H (0.02-0.09) ng/mL 06/16/23 Range/Units 06:10 PT 18.1 H (10.0-12.5) sec INR 1.8 H (<1.2) Glucose (74-99) mg/dL POC Glucose (mg/dL) (70-110) mg/dL C-Reactive Protein (<1.0) mg/dL Procalcitonin (0.02-0.09) ng/mL Microbiology - Last 24 Hours (Table) 06/13/23 22:50 Blood Culture - Preliminary Blood Assessment and Plan (1) SIRS (systemic inflammatory response syndrome) Current Visit: Yes Status: Acute Code(s): R65.10 - SIRS OF NON-INFECTIOUS O RIGIN W/O ACUTE ORGAN DYSFUNCTION SNOMED Code(s): 933026412 Plan: 1patient is in the hospital with fever rigors and chills some weak urinary symptoms mildly positive UA high in the clinic suspicious for urinary source of her fever as the patient did have a chest x-ray that was reported negative for any pneumonia CT abdominal pelvis did not show any acute abnormality and no evidence of any cellulitis or joint swelling. 2patient with multiple antibiotic ALLERGIES that would limit the number of antibiotic safe to use. 3patient fever pattern has improved and the patient white count has normalized we will continue with Rocephin hopefully finishing therapy with oral Ceftin Dictation was produced using [employer] dictation software. please excuse any grammatical, word or spelling errors. Time with Patient: Less than 30
[2023-06-16 12:09] LABS: Glucose,Whole Blood 126 mg/dL (70-110)
[2023-06-16 12:39] VITALS: BP 116/76; PULSE 118; RESP 17; TEMP 98
--- NOTE | 2023-06-16 16:38 | P.DS ---
Providers Date of admission: 06/14/23 04:18 Expected date of discharge: 06/16/23 Attending physician: Mynor Bond Consults: 06/14/23 04:23 Consult Physician Routine Consulting Provider: Raad Irvin Consult Reason/Comments: SIRS Do you want consulting provider notified?: Yes Primary care physician: Naomi Westfall [facility] Course: Chief Complaint: Fever This is a pleasant 87-year-old patient who follows with Dr. Naomi Westfall. Chronic stable medical conditions include atrial fibrillation, CAD, diabetes, hypertension, hypothyroid. CAD with previous bypass. Expressive dysphagia due to prior intracranial hemorrhage Patient is somewhat of a forgetful/limited historian. No family at the bedside. As per the EMS report: Per family patient has been shaking trouble swallowing GI upset for a few hours. Patient history of intracranial hemorrhage and expressive aphasia secondary to this. Also did seem to report some chest pain. Some shortness of breath. Nauseated. Does feel weak. Some dizziness. Patient does state that she has had some fever. Decreased appetite. Has been having nasal sinus drainage. Clear. Patient did record of temperature of 101.2 in the ER. Some cough. June 14: Admitted with pneumonia, sepsis. IV fluids. IV ceftriaxone. Doing a bit better today. Did eat a light breakfast. No fever. Some tachycardia. June 15: Doing well. Tolerating diet. No respiratory symptoms. Keen to go home. Will give a short course of Ceftin. Social history: Lives with family. Denies any smoking or alcohol Physical examination: VITAL SIGNS: 98, 110, 17, 106 x 76, 97% room air GENERAL: Comfortable. EYES: Pupils equal. Conjunctiva shoaib l. HEENT: External appearance of nose and ears normal, oral cavity grossly normal. NECK: JVD not raised; masses not palpable. HEART: First and second heart sounds are normal; no edema. LUNGS: Respiratory rate increased; fair air entry ABDOMEN: Soft, nontender, liver spleen not palpable, no masses palpable. PSYCH: Patient is able to answer questions. Mood affect appears to be normal l. NEUROLOGICAL: Patient sometimes has trouble finding words. No facial asymmetry, power and sensation grossly intact. INVESTIGATIONS, reviewed in the clinical context: June 15: White count 8.4 hemoglobin 12.8 platelets 210 INR 1.8 potassium 4 creatinine 0.61 June 13: INR 1.9 Procalcitonin: 0.05 June 13, 2023: White count 16.7 hemoglobin 13.6 platelets 227 INR 4.1 sodium 138 potassium 4.2 creatinine 0.54 Influenza type A, type B, RSV, COVID-19: Not detected CT scan abdomen pelvis: Nothing acute. Colonic diverticulosis EKG tracing personally reviewed by me-possible atrial fibrillation rate Controlled Chest x-ray film personally reviewed by me-some scattered infiltrates faint Assessment plan: -Suspect pneumonia. Scanty infiltrates. Normal procalcitonin. Causing acute hypoxic respiratory failure. 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 Lopressor 50 mg twice daily. Coumadin -Coumadin monitoring By pharmacy -Peripheral neuropathy Neurontin -Hypothyroid Synthroid -Possible acute sinusitis with drainage. Claritin-D -Diabetes mellitus type 2 on oral hypoglycemic Metformin. Accu-Cheks with sliding scale insulin -Full code Disposition: Home Past Medical History Past Medical History: Atrial Fibrillation, Coronary Artery Disease (CAD), Diabetes Mellitus, Hyperlipidemia, Thyroid Disorder History of Any Multi-Drug Resistant Organisms: None Reported Past Surgical History: Coronary Bypass/CABG Past Psychological History: No Psychological Hx Reported Past Alcohol Use History: None Reported Past Drug Use History: None Reported Plan - Discharge Summary Discharge Rx Participant: Yes New Discharge Prescriptions: New cefUROXime axetiL [Ceftin] 500 mg PO BID 1 Days #2 tab Continue metFORMIN HCL [Glucophage] 1,000 mg PO BID Metoprolol Tartrate [Lopressor] 50 mg PO BID Glimepiride [Amaryl] 1 mg PO AC-BRKFST Levothyroxine Sodium [Synthroid] 100 mcg PO DAILY Digoxin [Lanoxin] 125 mcg PO DAILY Ubidecarenone [Co Q-10] 200 mg PO DAILY Cranberry Fruit Extract [Cranberry] 500 mg PO DAILY Gabapentin [Neurontin] 100 mg PO DAILY Gabapentin [Neurontin] 200 mg PO HS Lutein 10 mg PO DAILY Warfarin [Coumadin] 3 mg PO DAILY L.acidoph,Paracasei, B.lactis [Probiotic] 1 cap PO DAILY Changed Loratadine [Claritin] 5 mg PO BID #0 No Action Stool Softner 250mg 250 mg PO DAILY Discharge Medication List Cranberry Fruit Extract [Cranberry] 500 mg PO DAILY 08/07/18 [History] Digoxin [Lanoxin] 125 mcg PO DAILY 08/07/18 [History] Glimepiride [Amaryl] 1 mg PO AC-BRKFST 08/07/18 [History] Levothyroxine Sodium [Synthroid] 100 mcg PO DAILY 08/07/18 [History] Metoprolol Tartrate [Lopressor] 50 mg PO BID 08/07/18 [History] Ubidecarenone [Co Q-10] 200 mg PO DAILY 08/07/18 [History] metFORMIN HCL [Glucophage] 1,000 mg PO BID 08/07/18 [History] Gabapentin [Neurontin] 100 mg PO DAILY 06/14/23 [History] Gabapentin [Neurontin] 200 mg PO HS 06/14/23 [History] L.acidoph,Paracasei, B.lactis [Probiotic] 1 cap PO DAILY 06/14/23 [History] Lutein 10 mg PO DAILY 06/14/23 [History] Stool Softner 250mg 250 mg PO DAILY 06/14/23 [History] Warfarin [Coumadin] 3 mg PO DAILY 06/14/23 [History] Loratadine [Claritin] 5 mg PO BID #0 06/16/23 [Rx] cefUROXime axetiL [Ceftin] 500 mg PO BID 1 Days #2 tab 06/16/23 [Rx] Follow up Appointment(s)/Referral(s): Naomi Westfall MD [Primary Care Provider] - 1 Week Patient Instructions/Handouts: Sepsis (DC) Discharge Disposition: HOME SELF-CARE
[2023-06-16] MEDS ORDERED: WARFARIN 1 MG TAB PO ONE (18:00)
== END 2023-06-16 15:01 | disposition home or self-care (01) | DRG 871 ==
LOC: EC 21:22 → 4SSUR 06-14 04:18
PROVIDERS: ADMIT Hospitalist; ATTEND Hospitalist
DX: A41.9 Sepsis, unspecified organism (principal); J18.9 Pneumonia, unspecified organism; J96.01 Acute respiratory failure with hypoxia; I48.19 Other persistent atrial fibrillation; N39.0 Urinary tract infection, site not specified; E11.42 Type 2 diabetes mellitus with diabetic polyneuropathy; E03.9 Hypothyroidism, unspecified; I10 Essential (primary) hypertension; J01.90 Acute sinusitis, unspecified; I25.10 Atherosclerotic heart disease of native coronary artery without angina pectoris; E78.5 Hyperlipidemia, unspecified; R29.818 Other symptoms and signs involving the nervous system; K30 Functional dyspepsia; Z79.01 Long term (current) use of anticoagulants; I69.220 Aphasia following other nontraumatic intracranial hemorrhage; I69.298 Other sequelae of other nontraumatic intracranial hemorrhage; Z79.891 Long term (current) use of opiate analgesic; Z79.82 Long term (current) use of aspirin; Z79.84 Long term (current) use of oral hypoglycemic drugs; Z79.890 Hormone replacement therapy; Z95.1 Presence of aortocoronary bypass graft; Z79.899 Other long term (current) drug therapy; Z88.0 Allergy status to penicillin; Z88.2 Allergy status to sulfonamides; Z88.8 Allergy status to other drugs, medicaments and biological substances
CPT/HCPCS: 36415; 71046; 74177; 80048; 80053; 81001; 83605; 83735; 84145; 85025; 85610; 85730; 86140; 87040; 87636; 93005; 96361; 96365; 96366; 96367; 99285